=== PATIENT | female | born 1995 | race Caucasian/White ===

== ENCOUNTER 2019-03-04 20:31 | Emergency (ER) | payer MEDICAID, SELFPAY ==
[2019-03-04 20:35] VITALS: BP 128/73; PULSE 95; RESP 16; TEMP 36.4; O2SAT 95; BMI 23.3
== END 2019-03-04 22:04 | disposition home or self-care (01) ==
PROVIDERS: Emergency Provider Family Medicine; Family Provider Nurse Practitioner; PCP Nurse Practitioner
DX: Z53.21 Procedure and treatment not carried out due to patient leaving prior to being seen by health care provider (principal)
CPT/HCPCS: 99281

== ENCOUNTER 2020-03-02 18:05 | Outpatient (CLI) | payer MEDICAID, SELFPAY ==
[2020-03-02 18:13] VITALS: BP 134/71; PULSE 89; RESP 18
[2020-03-02] MEDS: sodium chloride 0.9% 1,000 ML 999 ML IV ×2 (18:39→19:55)
[2020-03-02 18:56] LABS: Urine Appearance Hazy (CLEAR); Urine Color Yellow (Yellow)
[2020-03-02 18:57] LABS: Bilirubin Urine Neg (Negative); Blood Urine 2+ (Negative); Glucose Urine UA Norm (Normal); Ketones Urine 1+ (Negative); Leukocyte Esterase Urine Trace (Negative); Nitrate Urine Negative (Negative); Protein Urine Neg (Negative); Specific Gravity, Urine 1.025 (1.005-1.030); Urobilinogen Urine Norm (Negative); pH Urine 5 (5-7)
[2020-03-02 19:01] VITALS: BMI 31.6
[2020-03-02 19:03] LABS: Amphetamines Screen Urine Negative (Negative); Barbiturates Screen Urine Negative (Negative); Benzodiazepines Screen Urine Negative (Negative); Cocaine Screen Urine Negative (Negative); Opiate Screen Urine Negative (Negative); PCP Screen Urine Negative (Negative); THC Screen Urine Negative (Negative)
[2020-03-02 19:06] LABS: RBC Urine 15-25 /hpf (0-2); Squamous Epithelial Cell Urine 25-40 /hpf (0-5)
[2020-03-02 19:07] LABS: Add Urine Culture? No; Bacteria Urine 2+ /hpf; Mucus Urine 2+ /hpf
[2020-03-02] MEDS: cephALEXin 500 mg Capsule PO (20:19)
[2020-03-02 20:53] VITALS: TEMP 36.3
[2020-03-02 20:54] VITALS: BP 107/59; PULSE 80
== END 2020-03-02 21:20 | disposition home or self-care (01) ==
LOC: OPOB 18:17 → OBGYN 19:59
PROVIDERS: Visit Provider Family Medicine
DX: O26.899 Other specified pregnancy related conditions, unspecified trimester (principal); Z3A.00 Weeks of gestation of pregnancy not specified; R10.9 Unspecified abdominal pain
CPT/HCPCS: 80306; 81001; 96360; 99211; J7030

== ENCOUNTER 2020-03-17 20:14 | Outpatient (CLI) | payer MEDICAID, SELFPAY ==
[2020-03-17] VITALS (16 sets, daily range): BP systolic 114–147; BP diastolic 65–75; PULSE 75–95; TEMP 36.4; O2SAT 96–100; BMI 31.4
[2020-03-17] MEDS: terbutaline 1 mg/mL INJ 0.25 MG SUBCUT (21:08)
[2020-03-17] MEDS: lactated ringers 1,000 ML 999 ML IV (21:08)
[2020-03-17 21:34] LABS: Bilirubin Urine Neg (Negative); Blood Urine Trace (Negative); Glucose Urine UA 2+ (Normal); Ketones Urine 1+ (Negative); Leukocyte Esterase Urine Negative (Negative); Nitrate Urine Negative (Negative); Protein Urine Neg (Negative); Specific Gravity, Urine 1.025 (1.005-1.030); Urine Appearance Clear (CLEAR); Urine Color Yellow (Yellow); Urobilinogen Urine Norm (Negative)
[2020-03-17 21:35] LABS: Add Urine Culture? No; Add Urine Microscopic? YES; Bacteria Urine 1+ /hpf; Mucus Urine 1+ /hpf; RBC Urine 0-4 /hpf (0-2); WBC Urine 0-4 /hpf (0-5)
== END 2020-03-17 22:23 | disposition home or self-care (01) ==
LOC: OPOB 20:20 → OBGYN 20:23
PROVIDERS: Visit Provider Family Medicine
DX: O26.899 Other specified pregnancy related conditions, unspecified trimester (principal); Z3A.00 Weeks of gestation of pregnancy not specified; R10.9 Unspecified abdominal pain
CPT/HCPCS: 81001; 96365; 96372; 99211; J3105

== ENCOUNTER 2020-03-20 20:33 | Outpatient (CLI) | payer MEDICAID, SELFPAY ==
[2020-03-20] VITALS (9 sets, daily range): BP systolic 119–131; BP diastolic 66–72; PULSE 87–104; RESP 17; TEMP 36.8–37; O2SAT 96–97; BMI 32.1
[2020-03-20] MEDS: sodium chloride 0.9% 1,000 ML 999 ML IV (21:30)
[2020-03-20] MEDS: ondansetron 2 mg/ML SDV 2 mL 4 MG IVP (21:56)
[2020-03-20 22:13] LABS: Add Urine Microscopic? NO
[2020-03-20 22:20] LABS: Bilirubin Urine Neg (Negative); Blood Urine Neg (Negative); Glucose Urine UA Norm (Normal); Ketones Urine Negative (Negative); Leukocyte Esterase Urine Negative (Negative); Nitrate Urine Negative (Negative); Protein Urine Neg (Negative); Specific Gravity, Urine 1.025 (1.005-1.030); Urine Appearance Clear (CLEAR); Urine Color Yellow (Yellow); Urobilinogen Urine Norm (Negative)
== END 2020-03-20 22:57 | disposition home or self-care (01) ==
LOC: OPOB 20:34 → OBGYN 20:38
PROVIDERS: Visit Provider Family Medicine
DX: O36.8190 Decreased fetal movements, unspecified trimester, not applicable or unspecified (principal); Z3A.00 Weeks of gestation of pregnancy not specified
CPT/HCPCS: 59025; 81003; 99211; J2405; J7030

== ENCOUNTER 2020-03-21 17:16 | Outpatient (CLI) | payer MEDICAID, SELFPAY ==
[2020-03-21] VITALS (36 sets, daily range): BP systolic 102–139; BP diastolic 52–85; PULSE 81–117; RESP 18; TEMP 37.2; O2SAT 92–100; BMI 31.6
[2020-03-21] MEDS: terbutaline 1 mg/mL INJ 0.25 MG SUBCUT (18:11)
[2020-03-21 18:13] LABS: Bilirubin Urine Neg (Negative); Blood Urine Neg (Negative); Glucose Urine UA Norm (Normal); Ketones Urine Negative (Negative); Leukocyte Esterase Urine Trace (Negative); Nitrate Urine Negative (Negative); Protein Urine Neg (Negative); Urine Appearance Hazy (CLEAR); Urine Color Yellow (Yellow); Urobilinogen Urine Norm (Negative); pH Urine 6.5 (5-7)
[2020-03-21] MEDS: lactated ringers 1,000 ML 999 ML IV (18:14)
[2020-03-21 18:24] LABS: Add Urine Culture? No; Bacteria Urine 2+ /hpf; RBC Urine 0-4 /hpf (0-2)
[2020-03-21] MEDS: oxyCODONE-APAP 5-325 mg Tablet 2 TAB PO (19:20)
[2020-03-21] MEDS: NIFEdipine ER (24 hr) 30 mg Tablet PO (21:26)
[2020-03-21] MEDS: betamethasone susp 6 mg/mL 5 mL 12 MG IM (21:26)
== END 2020-03-21 21:57 | disposition home or self-care (01) ==
LOC: OPOB 17:20 → OBGYN 17:20
PROVIDERS: Visit Provider Family Medicine
DX: O26.899 Other specified pregnancy related conditions, unspecified trimester (principal); Z3A.00 Weeks of gestation of pregnancy not specified; R10.9 Unspecified abdominal pain
CPT/HCPCS: 81001; 83986; 96361; 96372; J0702; J3105

== ENCOUNTER 2020-03-22 04:38 | Outpatient (CLI) | payer MEDICAID, SELFPAY ==
[2020-03-22 04:38] VITALS: BMI 31.6
[2020-03-22 04:49] VITALS: TEMP 37.2
[2020-03-22 04:59] VITALS: BP 119/90; PULSE 90
[2020-03-22 06:04] LABS: Basophils # 0.1 10^3/uL (0.0-0.1); Basophils % 0.3 %; Hematocrit 34.4 % (37.0-47.0); Hemoglobin 10.8 g/dL (11.5-15.3); Lymphocytes # 1.1 10^3/uL (0.8-4.8); Lymphocytes % 7.3 %; Mean Corpuscular HGB Conc 31.4 g/dL (30.0-36.0); Mean Corpuscular Hemoglobin 29.3 pg (28.0-34.0); Mean Corpuscular Volume 93.2 fL (81-99); Mean Platelet Volume 10.4 fL (7.4-10.4); Monocytes # 0.2 10^3/uL (0.2-0.9); Monocytes % 1.3 %; Neutrophils # 13.98 10^3/uL (1.8-7.7); Neutrophils % 89.6 %; Nucleated Red Blood Cells % 0 %; Platelet Count 332 10^3/cmm (130-400); Red Blood Count 3.69 10^6/uL (4.1-5.3); Red Cell Distribution Width 13.2 % (12.1-15.1); White Blood Count 15.6 10^3/uL (4.0-10.0)
[2020-03-22] MEDS: acetaminophen 325 mg Tablet 650 MG PO (06:20)
[2020-03-22] MEDS: NIFEdipine 10 mg Capsule 20 MG PO (06:20)
[2020-03-22] MEDS: hyDROXYzine 25 mg Capsule PO (06:20)
[2020-03-22] MEDS: lactated ringers 1,000 ML 125 ML IV (06:22)
[2020-03-22 06:30] LABS: Albumin Level 3.2 g/dL (3.5-5.2); Alkaline Phosphatase 196 IU/L (35-105); Chloride 105 mmol/L (98-107); Potassium 4.4 mmol/L (3.5-5.1); Sodium 137 mmol/L (136-145)
[2020-03-22 06:44] LABS: Alanine Aminotransferase 8 U/L (0-33); Anion Gap 17.4 (5-19); Aspartate Amino Transferase 10 U/L (0-32); Blood Urea Nitrogen 5 mg/dL (6-20); Calcium 9.2 mg/dL (8.5-10.5); Carbon Dioxide 19 mmol/L (22-29); Glomerular Filtration Rate 278.2 mL/min (90-130); Glucose 162 mg/dL (65-115); Osmolality Calculated 285 mOsm/kg (285-295); Total Bilirubin 0.2 mg/dL (0.15-1.2); Total Protein 6.2 g/dL (6.6-8.7)
[2020-03-22 07:47] VITALS: RESP 16; TEMP 36.7
--- NOTE | 2020-03-22 10:21 | P.PN_ITS ---
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 She once again is complaining of abdominal pain and pain with contractions. Once again, her pain seems to be very dependent on how much she is focused on her contractions. When given Vistaril, she calmed down and her pain was markedly improved. She was out of control with her pain prior to the Vistaril, but is now is laying in her bed comfortably. She says that her pain has not changed at all, but her response to her pain has changed dramatically. Labor: Amniotic Membrane Status: Intact Monitor Mode: External Contraction Pattern: Irregular Vitals/I&O/Wt Last Vital Signs Temp 98.0 F 03/22/20 07:47 Pulse 90 03/22/20 04:59 Resp 16 03/22/20 07:47 BP 119/90 03/22/20 04:59 Weight last 48 hrs Weight 202 lb Physical Exam Const: COMMON NORMALS: patient oriented x3 and alert HENMT: COMMON NORMALS: moist oral mucous membranes HEAD & SCALP: normal to inspection Chest: COMMONS NORMALS: normal inspection of the chest Resp: COMMON NORMALS: clear to auscultation bilaterally AUSCULTATION: clear to auscultation bilaterally Cardio: COMMON NORMALS: regular rate and regular rhythm RATE: regular rate RHYTHM: regular rhythm GI: INSPECTION: Yes normal to inspection and Yes other (Gravid) PALPATION: Yes Tenderness to palpation present (GI) (The patient is tender even to the gentlest touch anywhere across her abdome) : MANUAL OB EXAM: Not dilated nor effaced (The patient is a tight 1 cm dilated, and is thick and high according to the) Extremity: COMMON NORMALS: normal to inspection GENERAL: Yes edema (Trace) Neuro: COMMON NORMALS: patient oriented x3, moves all extremities and no sensory deficits noted SENSORIUM/ORIENTATION: Yes alert Psych: COMMON NORMALS: mental status grossly normal MOOD & AFFECT: Yes anxious and Yes irritable Skin: COMMON NORMALS: no rashes or lesions noted GENERAL SKIN EXAM: no rashes or lesions noted Data : 03/22/20 05:51 03/22/20 05:51 A&P Assessment and plan (1) Abdominal pain complicating : The patient will receive a second dose of her betamethasone tonight. She will follow-up with me in my office next week. I have talked for about how she can manage her pain better. Status: Acute (2) contractions: Status: Acute Attestations Medical Necessity Statement*: Going home now. Coding Level of Care Code Acute Train Control Electronic Technician for g Fwd Diagnoses Abdominal pain complicating O26.899; R10.9 contractions O47.9
[2020-03-22 10:45] VITALS: BP 103/67; PULSE 99
== END 2020-03-22 11:00 | disposition home or self-care (01) ==
LOC: OPOB 04:39 → OBGYN 10:20
PROVIDERS: Visit Provider Family Medicine
DX: O26.899 Other specified pregnancy related conditions, unspecified trimester (principal); O47.9 False labor, unspecified; R10.9 Unspecified abdominal pain; Z3A.00 Weeks of gestation of pregnancy not specified
CPT/HCPCS: 36415; 80053; 85025; 96361; 99211

== ENCOUNTER 2020-03-22 20:09 | Outpatient (CLI) | payer MEDICAID, SELFPAY ==
[2020-03-22 20:13] VITALS: RESP 17
[2020-03-22 20:21] VITALS: BP 117/60; PULSE 86
[2020-03-22 20:22] VITALS: TEMP 37.1
[2020-03-22 20:34] VITALS: BMI 34.7
[2020-03-22] MEDS: betamethasone susp 6 mg/mL 5 mL 12 MG IM (20:41)
[2020-03-22 20:45] VITALS: BP 117/60; PULSE 86; RESP 16; TEMP 37.1
== END 2020-03-22 20:58 | disposition home or self-care (01) ==
LOC: OPOB 20:12 → OBGYN 20:16
PROVIDERS: Visit Provider Family Medicine
DX: O26.899 Other specified pregnancy related conditions, unspecified trimester (principal); R10.9 Unspecified abdominal pain; O47.9 False labor, unspecified; Z3A.00 Weeks of gestation of pregnancy not specified
CPT/HCPCS: 59025; 96372; 99211; J0702

== ENCOUNTER 2020-03-28 07:05 | Outpatient (CLI) | payer MEDICAID, SELFPAY ==
[2020-03-28 07:25] VITALS: BP 126/73; PULSE 100; TEMP 36.7
[2020-03-28] MEDS: lactated ringers 1,000 ML 999 ML IV (08:02)
[2020-03-28] MEDS: promethazine 25 mg/mL SDV 1 mL IM (08:02)
[2020-03-28 08:43] VITALS: BP 119/63; PULSE 84
[2020-03-28 09:17] LABS: Bilirubin Urine Neg (Negative); Blood Urine Neg (Negative); Glucose Urine UA Norm (Normal); Ketones Urine Negative (Negative); Leukocyte Esterase Urine 2+ (Negative); Nitrate Urine Negative (Negative); Protein Urine Neg (Negative); Urine Appearance Cloudy (CLEAR); Urine Color Yellow (Yellow); Urobilinogen Urine Norm (Negative); pH Urine 6 (5-7)
[2020-03-28 09:22] VITALS: BP 126/73; PULSE 83
[2020-03-28 09:26] VITALS: BP 126/73; PULSE 83; RESP 15; TEMP 37
[2020-03-28 09:47] LABS: Add Urine Culture? No; Bacteria Urine 2+ /hpf; Squamous Epithelial Cell Urine 80-100 /hpf (0-5); WBC Urine 55-80 /hpf (0-5)
== END 2020-03-28 09:25 | disposition home or self-care (01) ==
LOC: OPOB 07:10 → OBGYN 07:10
PROVIDERS: Visit Provider Family Medicine
DX: O26.899 Other specified pregnancy related conditions, unspecified trimester (principal); Z3A.00 Weeks of gestation of pregnancy not specified; R10.9 Unspecified abdominal pain
CPT/HCPCS: 59025; 81001; 83986; 96372; 99211; J2550

== ENCOUNTER 2020-04-04 21:26 | Outpatient (CLI) | payer MEDICAID, SELFPAY ==
[2020-04-04 21:40] VITALS: TEMP 36.9
[2020-04-04 21:41] VITALS: BP 117/62; PULSE 94
[2020-04-04 22:13] VITALS: RESP 16
[2020-04-04 22:14] VITALS: BMI 32.5
[2020-04-04 22:23] VITALS: BP 117/62; PULSE 94; RESP 16; TEMP 36.9
[2020-04-04 22:28] LABS: Nitrazine Paper, PH Negative
== END 2020-04-04 22:36 | disposition home or self-care (01) ==
LOC: OPOB 21:32 → OBGYN 21:37
PROVIDERS: Visit Provider Family Medicine
DX: O26.899 Other specified pregnancy related conditions, unspecified trimester (principal); Z3A.00 Weeks of gestation of pregnancy not specified; R10.9 Unspecified abdominal pain
CPT/HCPCS: 59025; 83986; 99211

== ENCOUNTER 2020-04-09 18:40 | Outpatient (CLI) | payer MEDICAID, SELFPAY ==
[2020-04-09 19:03] VITALS: BP 129/67; PULSE 93
[2020-04-09 19:04] VITALS: TEMP 36.8
[2020-04-09 19:18] VITALS: BP 112/58; PULSE 93
[2020-04-09 19:45] VITALS: BMI 33.2
== END 2020-04-09 19:34 | disposition home or self-care (01) ==
LOC: OPOB 18:45 → OBGYN 19:25
PROVIDERS: Visit Provider Family Medicine
DX: O26.899 Other specified pregnancy related conditions, unspecified trimester (principal); Z3A.00 Weeks of gestation of pregnancy not specified; R10.9 Unspecified abdominal pain
CPT/HCPCS: 59025; 83986; 99211

== ENCOUNTER 2020-04-13 19:40 | Outpatient (CLI) | payer MEDICAID, SELFPAY ==
[2020-04-13] VITALS (7 sets, daily range): BP systolic 107–124; BP diastolic 68–86; PULSE 76–85; RESP 16; TEMP 36.9; BMI 32.8
[2020-04-13 21:34] LABS: Bilirubin Urine Neg (Negative); Blood Urine Neg (Negative); Glucose Urine UA Norm (Normal); Ketones Urine Negative (Negative); Leukocyte Esterase Urine 2+ (Negative); Nitrate Urine Negative (Negative); Protein Urine Neg (Negative); Urine Color Yellow (Yellow); Urobilinogen Urine Norm (Negative); pH Urine 6 (5-7)
[2020-04-13 21:35] LABS: Add Urine Culture? No; Bacteria Urine 4+ /hpf; RBC Urine 0-4 /hpf (0-2); Squamous Epithelial Cell Urine 40-55 /hpf (0-5); WBC Urine 15-25 /hpf (0-5)
== END 2020-04-13 22:05 | disposition home or self-care (01) ==
LOC: OPOB 20:01 → OBGYN 20:02
PROVIDERS: Visit Provider Family Medicine
DX: O26.899 Other specified pregnancy related conditions, unspecified trimester (principal); Z3A.00 Weeks of gestation of pregnancy not specified; N89.8 Other specified noninflammatory disorders of vagina
CPT/HCPCS: 59025; 81001; 83986; 99211

== ENCOUNTER 2020-04-17 07:37 | Inpatient (IN) | payer MEDICAID, SELFPAY ==
[2020-04-17] VITALS (95 sets, daily range): BP systolic 107–145; BP diastolic 54–73; PULSE 65–181; RESP 18; TEMP 36.3–37.6; O2SAT 97–99; BMI 32.8
[2020-04-17 05:09] LABS: Basophils # 0.1 10^3/uL (0.0-0.1); Basophils % 0.4 %; Eosinophils # 0.2 10^3/uL (0.0-0.8); Eosinophils % 1.4 %; Hematocrit 35.5 % (37.0-47.0); Hemoglobin 11.2 g/dL (11.5-15.3); Lymphocytes % 13.5 %; Mean Corpuscular HGB Conc 31.5 g/dL (30.0-36.0); Mean Corpuscular Hemoglobin 28.6 pg (28.0-34.0); Mean Corpuscular Volume 90.6 fL (81-99); Mean Platelet Volume 10.5 fL (7.4-10.4); Monocytes # 0.8 10^3/uL (0.2-0.9); Monocytes % 5.6 %; Neutrophils # 11.51 10^3/uL (1.8-7.7); Neutrophils % 77.2 %; Nucleated Red Blood Cells % 0 %; Platelet Count 335 10^3/cmm (130-400); Red Blood Count 3.92 10^6/uL (4.1-5.3); Red Cell Distribution Width 14.6 % (12.1-15.1); White Blood Count 14.9 10^3/uL (4.0-10.0)
[2020-04-17] MEDS: dextrose 5%-lactated ringers 1,000 ML 125 ML IV (07:32)
[2020-04-17] MEDS: ampicillin 2,000 MG in sodium chloride 0.9% (plus) 50 ML 100 MG IV (07:32)
[2020-04-17] MEDS: fentaNYL 50 mcg/mL INJ 2mL IV (08:16)
[2020-04-17] MEDS: lactated ringers 1,000 ML 999 ML IV ×2 (08:16→09:21)
--- NOTE | 2020-04-17 09:32 | ANES.PREANE2 ---
Pre-Anesthetic Assessment Pre-Anesthetic Assessment: Height/Weight: Height 1.68 m Weight 92.079 kg Temp Pulse Resp BP Pulse Ox 99.1 F 80 18 131/58 98 04/17/20 08:18 04/17/20 09:29 04/17/20 08:24 04/17/20 09:29 04/17/20 09:29 Preop Diagnosis: IUP Proposed Procedure: Epidural Familial anesthetic complications: None Was Beta Daniela taken within 24 hours: N/A Last intake: NPO > 8 hrs Social: Social History: No alcohol and No tobacco Exam: Pre-Anes Outpt Exam: alert, oriented x 3, clear to auscultation bilaterally and regular rate & rhythm Airway: Cervical ROM: WNL MP: 3 Dentition: Other (cavities (front tooth)) Anesthetic Plan: ASA status: 2 Anesthesia: Regional (specify below) Risk of > 500 ml blood loss (7ml/kg in children): Yes, adequate IV access and fluids planned Meds/Allergies Current Medications: Current Medications Generic Name Dose Route Start Last Admin Trade Name Yonnyq PRN Reason Stop Dose Admin Fentanyl 25 - 100 mcg 04/17/20 08:01 04/17/20 08:16 Fentanyl 50 Mcg/ Ml Inj 2ml IV 25 mcg Q1H PRN Administration SEVERE PAIN Dextrose/Lactated Ringer's 1,000 mls @ 125 m ls/hr 04/17/20 05:00 04/17/20 08:27 Dextrose 5%-Lact ated Ringers IV 0 mls/hr .Q8H PAYTON Infusion Ropivacaine 200 mg in 100 mls @ 13 mls/hr 04/17/20 08:15 04/17/20 09:21 Naropin Premix EPIDURAL 13 mls/hr .Q7H42M PAYTON Administration Lactated Ringer's 1,000 mls @ 999 m ls/hr 04/17/20 08:03 04/17/20 09:21 Lactated Ringers IV 999 mls/hr .Q1H1M PRN Administration See label comment s PFSH Anesthesia PFSH: Social History Smoking and tobacco status: current every day smoker Female Reproductive History: : 2 Data Anesthesia CBC & Chem 7: 04/17/20 04:50 Other Labs: Laboratory Results - last 48 hr 04/17/20 04:50 WBC 14.9 H RBC 3.92 L Hgb 11.2 L Hct 35.5 L MCV 90.6 MCH 28.6 MCHC 31.5 RDW 14.6 Plt Count 335 MPV 10.5 H Neut % (Auto) 77.2 Lymph % (Auto) 13.5 [facility] % (Auto) 5.6 Eos % (Auto) 1.4 Baso % (Auto) 0.4 Neut # (Auto) 11.51 H Lymph # (Auto) 2.0 [facility] # (Auto) 0.8 Eos # (Auto) 0.2 Baso # (Auto) 0.1 Nucleated RBC % (auto) 0 Nucleated RBCs # 0.0 Cardiac Studies: No Data to Display
--- NOTE | 2020-04-17 09:33 | ANES.PROC ---
Anesthesia Procedures Procedure/Date: 04/17/20 Epidural: Time Out Performed: Yes Consents Signed: Procedure Consent, NPO Consent and No Consent Needed Consent: requested by attending/covering physician, from patient, risks and benefits reviewed and patient agrees to proceed Lumbar Level: L2-L3 Epidural position: sitting Epidural procedure: sterile prep of area, 1% lidocaine to numb the area, 18 g needle, negative for paresthesia passed, neg for paresthesia, test dose given, 1.5% xylocaine 1:200k epi (5 cc (divided dose)), 0.2% Ropivacaine bolus ml (5 cc), placed PCEA, no systemic response, sterile dressing applied, L.U.D. no apparent complications and 0.2% Ropiavacaine @ mls/hr (13) Additional Comments: ALVERTO at 4.5 cm, threaded to 10 cm. Patient reported significant decrease in pain of subsequent two contractions.
[2020-04-17] MEDS: oxytocin 30 UNIT/500 ML BAG IV (10:02)
[2020-04-17] MEDS: ampicillin 1,000 MG in sodium chloride 0.9% (plus) 50 ML 100 MG IV ×2 (11:23→14:32)
[2020-04-17] MEDS: ondansetron 2 mg/ML SDV 2 mL 4 MG IVP (14:32)
--- NOTE | 2020-04-17 17:33 | P.PCNOB_ITS ---
Delivery Note: Date of delivery: April 17, 2020 Pre-Delivery Course: The patient is a 24-year-old 2 para 0-0-1-0 at 37 weeks and 1 day who presented to the hospital with spontaneous rupture of membranes. She was having some contractions but no cervical change. As result she was placed on Pitocin. An epidural was placed. Her GBS status was unknown so she was also placed on ampicillin. She received multiple doses. She progressed to complete without difficulty. Delivery: DELIVERY: The patient progressed to complete without difficulty. She then pushed for 1-1/2 hours with no change in station. She was about a 0 station when I placed a soft cup Kiwi vacuum on the baby's head in the usual fashion. I then applied steady pressure with the patient's next contraction while the mom pushed 3 times. The baby progressed to the point where he was then . The vacuum popped off at that point. With the next contraction, the patient was able to deliver the baby without difficulty. She delivered a male with a weight of 8 pounds 1 ounce with Apgars of 8, 9. The baby was delivered from the DHIRAJ position and placed on the mother's abdomen. His mouth and nose were then suctioned. A tear was noted in the cord and so the cord was then clamped and cut about 15 to 30 seconds after delivery. There was a nuchal cord x1 which was reduced at the time of delivery. Meconium was noted.. The pl acenta and 3 vessel cord were delivered intact shortly thereafter. The perineum and vaginal vault were carefully examined. A second-degree posterior midline tear was noted. It was repaired with 3-0 Vicryl in usual fashion. Both the mother and the baby were in stable condition. A&P Assessment and plan (1) 37 weeks gestation of : I anticipate routine care. If all goes well, she will be able to be discharged home tomorrow evening. Status: Acute (2) Vacuum-assisted vaginal delivery: Status: Acute Coding Level of Care Code Acute Estate And Trust Tax Principal for Naomi Munoz Diagnoses 37 weeks gestation of Z3A.37 Vacuum-assisted vaginal delivery Z37.9
[2020-04-17] MEDS: docusate sodium 100 mg Capsule PO (18:22)
[2020-04-17] MEDS: HYDROcodone-acetaminophen 5-325 mg Tablet PO (18:24)
[2020-04-17] MEDS: lanolin oint 7 gm 1 APPLIC TOPICAL (19:06)
[2020-04-17] MEDS: benzocaine-menthol 78 gm Canister 1 SPRAY TOPICAL (19:06)
[2020-04-17] MEDS: ibuprofen 800 mg tablet PO (21:01)
[2020-04-18] VITALS (12 sets, daily range): BP systolic 95–127; BP diastolic 47–61; PULSE 68–86; RESP 16; TEMP 36.8
[2020-04-18 05:02] LABS: Hematocrit 30.2 % (37.0-47.0); Hemoglobin 9.6 g/dL (11.5-15.3); Mean Corpuscular HGB Conc 31.8 g/dL (30.0-36.0); Mean Corpuscular Hemoglobin 28.7 pg (28.0-34.0); Mean Corpuscular Volume 90.1 fL (81-99); Mean Platelet Volume 10.6 fL (7.4-10.4); Platelet Count 278 10^3/cmm (130-400); Red Blood Count 3.35 10^6/uL (4.1-5.3); Red Cell Distribution Width 14.6 % (12.1-15.1); White Blood Count 16.3 10^3/uL (4.0-10.0)
--- NOTE | 2020-04-18 07:40 | P.DS_ITS ---
Discharge Providers PATIENT SAFETY TECH Date of Admission: 04/17/20 07:37 Date of Discharge: 04/18/20 Attending Provider at Admission: Zhang Snell MD Attending Provider at Discharge: Zhang Snell MD Diagnoses at Discharge Discharge Diagnosis (1) 37 weeks gestation of : Status: Acute (2) Vacuum-assisted vaginal delivery: Status: Acute Reason for Visit Reason for Visit: Possible ROM Hospital Course Hospital Course The patient presented to the hospital with spontaneous rupture membranes and active labor. She received an epidural. Her labor was augmented with Pitocin. She progressed to complete and had an unremarkable delivery of a healthy appearing 37-week male infant. Her course is also been unremarkable. Her bleeding has been within normal limits. Her pain is been well controlled. She has been breast-feeding with the assistance of the nurses. Information Peripartum Data: Delivery Method: Vaginal Physical Exam Narrative: EXAM NARRATIVE: The patient is alert. She appears comfortable. Her heart has a regular rate and rhythm with no murmurs appreciated. Lungs are clear to auscultation bilaterally. Her fundus is firm and below the umbilicus. Urinary Catheter Management^: Vance: Cath Placed During This Visit: yes, but has since been removed by the nurse Reason for Continuing Indwelling Catheter: Decision to DC Catheter Urinary Catheter Date of Insertion: 04/17/20 Urinary Catheter Time of Insertion: 09:52 Date Urinary Catheter Removed: 04/17/20 Time Urinary Catheter Discontinued: 15:00 Discharge Data Data Completed and Pending: Pending at discharge Category Date Time Status COVID [Coronaviru s Test Green Count y] Routine Lab 04/17/20 06:40 Received Labs from last 24 hours 04/18/20 04:50 WBC 16.3 H RBC 3.35 L Hgb 9.6 L Hct 30.2 L MCV 90.1 MCH 28.7 MCHC 31.8 RDW 14.6 Plt Count 278 MPV 10.6 H Vitals: Last Vital Signs Temp 99.7 F H 04/17/20 18:49 Pulse 76 04/18/20 01:51 Resp 18 04/17/20 17:49 BP 123/57 04/18/20 01:51 Pulse Ox 97 04/17/20 10:14 Discharge Plan Discharge Patient Disposition: Home Condition: Stable Prescriptions: New ibuprofen 800 mg Tablet 800 mg PO TID Qty: 45 RF: 0 Continued kscxmzzw-akm-Lb-FA 1 mg Tablet 1 tab PO DAILY RF: 0 acetaminophen [Tylenol Extra Strength] 500 mg Tablet 500 mg PO Q6H PRN (Reason: Pain) RF: 0 sertraline 50 mg Tablet 50 mg PO DAILY RF: 0 Discontinued nifedipine 30 mg Tablet Extended Release 24hr 30 mg PO DAILY RF: 0 famotidine 10 mg Tablet 10 mg PO DAILY RF: 0 promethazine 25 mg Tablet 25 mg PO Q6H PRN (Reason: Nausea And Vomiting) RF: 0 Discharge Orders: Discharge Order (Routine); Ordered 04/18/20 Ordered By: Zhang Snell Referrals: Zhang Snell MD [Physician] - 6 Weeks Discharge Diet: Usual diet Discharge Activity: Limit activity as instructed Discharge Attestations PATIENT SAFETY TECH Time Spent in Discharge Care*: less than 30 min Specific Discharge Activities: Specific discharge activities: educating patient and educating and/or supporting family/caregiver Coding Level of Care Code Acute Molecular Biology Director for Chg Fwd Diagnoses 37 weeks gestation of Z3A.37 Vacuum-assisted vaginal delivery Z37.9
[2020-04-18] MEDS: prenatal vitamin Capsule 1 CAP PO (09:24)
[2020-04-18] MEDS: docusate sodium 100 mg Capsule PO ×2 (09:24→19:03)
[2020-04-18] MEDS: ibuprofen 800 mg tablet PO ×2 (09:24→19:03)
--- NOTE | 2020-04-18 12:38 | ANE.PACU2 ---
Inpatient post-anesthesia follow up: Airway intact: Yes Vital signs: Temperature 99.7 F Pulse Rate 76 Respiratory Rate 18 Blood Pressure 123/57 Pulse Oximetry 97 Oxygen Delivery Me thod Room Air Oxygen Flow Rate Fraction of Inspir ed Oxygen Hydration adequate: Yes Nausea and vomiting: No Pain level: 2 Mental status: Baseline
[2020-04-20 14:45] LABS: Coronavirus Test Green County Not Detected
== END 2020-04-18 20:39 | disposition home or self-care (01) | DRG 806 ==
LOC: OPOB 07:37 → OBGYN 07:37
PROVIDERS: Admitting Provider Family Medicine; Visit Provider Family Medicine
DX: O77.0 Labor and delivery complicated by meconium in amniotic fluid (principal); O99.354 Diseases of the nervous system complicating childbirth; Z37.0 Single live birth; O99.344 Other mental disorders complicating childbirth; F32.9 Major depressive disorder, single episode, unspecified; G40.909 Epilepsy, unspecified, not intractable, without status epilepticus; O69.2XX0 Labor and delivery complicated by other cord entanglement, with compression, not applicable or unspecified; O70.1 Second degree perineal laceration during delivery; Z3A.37 37 weeks gestation of pregnancy; O75.89 Other specified complications of labor and delivery; J45.909 Unspecified asthma, uncomplicated
CPT/HCPCS: 12345; 36415; 51702; 59025; 59409; 83986; 85025; 85027; 87635; 98960; 99211; J0290; J2405; J2795; J3010

== ENCOUNTER 2020-07-09 23:19 | Emergency (ER) | payer MEDICAID, SELFPAY ==
[2020-07-09 23:49] VITALS: BP 118/79; PULSE 80; RESP 16; TEMP 36.6; O2SAT 97; BMI 28.2
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
== END 2020-07-10 03:00 | disposition home or self-care (01) ==
PROVIDERS: Emergency Provider Emergency Medicine
DX: T76.21XA Adult sexual abuse, suspected, initial encounter (principal); F17.210 Nicotine dependence, cigarettes, uncomplicated
CPT/HCPCS: 99281

== ENCOUNTER 2021-02-19 17:07 | Emergency (ER) | payer MEDICAID, SELFPAY ==
[2021-02-19 17:33] VITALS: BP 123/76; PULSE 94; RESP 16; TEMP 36.7; O2SAT 98
--- NOTE | 2021-02-19 17:53 | W.ED.EXTPRO ---
HPI - Extremity Problem General: Chief complaint: Extremity Injury, Lower Stated complaint: [facility] Time Seen by Provider: 02/19/21 17:39 History of Present Illness: HPI Narrative: Patient is a 25-year-old female comes to the ED with right ankle injury. Yesterday patient says she was walking down some stairs and when she went to step down with right foot she twisted/rolled her right ankle. Since injury she says her right ankle was locked in the inward facing position. Says she can bear weight on it but it causes some pain and she has to limp. Her current pain level is a 6 out of 10 but if she has to move to put weight on it she says it 8 or 9 out of 10. Patient also states she is out of her albuterol inhaler. Associated symptoms: Deny chest pain, fever(s) or rash Review of Systems Const: Denies: fever(s), chills or fatigue Eyes: Denies: change in vision or eye discomfort ENMT: Denies: throat pain, odynophagia, nasal discharge or nasal congestion Card: Denies: chest pain, palpitations, edema, swelling of feet/ankles, dyspnea on exertion or orthopnea Resp: Denies: dyspnea, productive cough or non-productive cough GI: Denies: abdominal pain, nausea, vomiting, diarrhea, constipation or hematochezia : Denies: flank pain, dysuria or hematuria Musc: Reports: extremity pain (right ankle) and limited range of motion (right ankle); Denies: neck pain, back pain or extremity swelling Skin/Breast: Denies: rash or new lesions Neuro: Denies: headache(s), numbness in extremities or weakness in extremities PFS ED PFSH: Social History Smoking and tobacco status: current every day smoker Physical Exam Const: COMMON NORMALS: no acute distress, patient oriented x3, healthy appearing and alert GENERAL APPEARANCE: cooperative and comfortable HENMT: COMMON NORMALS: normocephalic HEAD & SCALP: normocephalic MOUTH: Normal oral and palatal mucosa present THROAT: posterior oropharynx normal and uvula midline Neck/C-Spine: COMMON NORMALS: supple GENERAL: Yes normal visual inspection Resp: COMMON NORMALS: normal respiratory effort, No retractions and No use of accessory muscles EFFORT & INSPECTION: Yes able to speak in complete sentences, No tachypneic, No respiratory distress and No labored AUSCULTATION: wheezes expiratory wheezes and throughout Cardio: COMMON NORMALS: regular rate, regular rhythm, S1 normal heart sound present, S2 normal heart sound present, No gallops present (Cardio), No clicks present (Cardio), No murmurs present (Cardio) and Peripheral pulses 2+ throughout RATE: regular rate RHYTHM: regular rhythm HEART SOUNDS: S1 normal heart sound present and S2 normal heart sound present PERIPHERAL PULSES: Peripheral pulses 2+ throughout GI: COMMON NORMALS: Normal to inspection, nondistended, normoactive bowel sounds present, Soft to palpation, non-tender and no masses PALPATION: Yes Soft to palpation : COMMON NORMALS: Yes no CVA tenderness BLADDER/KIDNEY EXAM: Yes no CVA tenderness Back/Pelvis: COMMON NORMALS: no CVA tenderness Extremity: GENERAL: Yes normal exam except as noted RIGHT LOWER EXTREMITY: Yes foot & digits (Foot held in inversion positioning at baseline) Right ankle: Yes inspection (No swelling or ecchymosis noted. ), Yes palpation (Tenderness over lateral and medial aspect of ankle.), Yes ROM (Limited due to pain) and Yes neurovascular exam (Intact) Neuro: COMMON NORMALS: patient oriented x3 and moves all extremities SENSORIUM/ORIENTATION: Yes alert Skin: GENERAL SKIN EXAM: dry skin Course ED course: Patient told me that she has been having multiple episodes of brief moments where her whole body goes numb and tingly feeling. She is aware of what is going on and can hear everybody during these episodes but she just cannot talk. She says they last for about maybe a minute. She has a history of seizures but says they are not like her past seizures and when she comes back to baseline she has no postictal state. Patient was on some antiseizure medications but stopped taking them as directed by her neurologist since she was . Now that she is delivered the baby she is scheduling appointment with her neuro specialist in [place] to meet with them to discuss getting back on seizure medications. I told patient to talk with neurologist about these brief episodes of full body numbness and tingling that she has been having recently. Vital Signs: Vital signs: Vital Signs Temperature 98.1 F 02/19/21 17:33 Pulse Rate 87 02/19/21 20:28 Respiratory Rate 20 H 02/19/21 20:28 Blood Pressure 134/87 02/19/21 20:28 Pulse Oximetry 96 02/19/21 20:28 MDM - Extremity (Nontraumatic) MDM Narrative: Medical decision making narrative: Patient is 25-year-old female comes to the ED with right ankle injury. Patient also was wanting to get her seizure medication refilled and her albuterol inhaler as well. Vitals stable. Patient appears in no acute distress or pain. She does have bilateral wheezing upon auscultation. Her right ankle has tenderness over the medial and lateral malleolus and she is holding the ankle and up inversion position. Neurovascular tact. X-ray of right ankle showed no acute fractures or findings. Due to the way patient's holding her foot position I am putting her in a posterior leg with stirrup splint to keep her foot and correct position while it heals and I am referring her to Ortho for follow-up. Patient was given DuoNeb breathing treatment while here in the ED and her symptoms improved. She was also given dose of Toradol for pain and Solu-Medrol. Patient is working on getting appointment set up with her neuro specialist in [place]. Patient was discharged home with a prescription for an albuterol inhaler, nifedipine and ibuprofen 800 mg for pain. Told her child welfare caseworker will contact her in the next several days to set up an appointment with Ortho for reevaluation of right ankle. Return to ED precautions given. Patient understood agree with plan. Imaging Data^: Xray Ortho: Attestation: I personally reviewed and interpreted this imaging study as follows: Radiologist's impression: [address] [address] XRay Report Signed Patient: Virgie Long Unit #: [id number] : 1995 Age/Sex: 25 / F ADM Date: 02/19/21 Loc: ER Room/Bed: Attending Dr: Ordering Provider/Ordering MD: Hai Richardson Date of Service: 02/19/21 Procedure(s): XR ankle RT min 3V* [id number] Accession Number(s): [id number] Report Number: [id number] PROCEDURE INFORMATION: Exam: XR Right Ankle Exam date and time: 02/19/2021 5:53 PM Age: 25 years old Clinical indication: Injury or trauma; Fall; Blunt trauma; Ankle; Right; Additional info: Injury with pain and limited rom TECHNIQUE: Imaging protocol: XR Right ankle. Views: 3 or more views. COMPARISON: No relevant prior studies available. FINDINGS: Bones/joints: No acute fracture. No dislocation. Normal bone mineralization. No joint effusion. Joint spaces are maintained. Soft tissues: No soft tissue swelling. No radiopaque foreign body. XR/XR ankle RT min 3V* [id number] IMPRESSION: No acute fracture. Followup imaging recommended in 7-14 days if clinical concern for fracture persists. Dictated By: Nelly Abreu MD Signed By: Nelly Abreu MD Signed Date/Time: 02/19/211836 DD/ 52 Discharge Plan Discharge Patient Disposition: Home Clinical Impression: Sprain and strain of ankle, Bilateral wheezing Condition: Stable Prescriptions: New nifedipine 30 mg tablet extended release 30 mg PO DAILY Qty: 30 RF: 0 ibuprofen 800 mg tablet 800 mg PO Q8H PRN (Reason: pain) Qty: 30 RF: 0 albuterol sulfate 90 mcg/actuation HFA aerosol inhaler 2 inh inhalation Q6H PRN (Reason: shortness of breath or wheezing) Qty: 8.5 RF: 0 No Action toupqzmf-lns-Ga-FA 1 mg Tablet 1 tab PO DAILY RF: 0 acetaminophen [Tylenol Extra Strength] 500 mg Tablet 500 mg PO Q6H PRN (Reason: Pain) RF: 0 sertraline 50 mg Tablet 50 mg PO DAILY RF: 0 ibuprofen 800 mg Tablet 800 mg PO TID Qty: 45 RF: 0 Discharge Orders: Discharge ED (Routine); Ordered 02/19/21 Ordered By: Hai Richardson Discharge Diet: Regular Discharge Activity: Limit activity as instructed and Use walker/crutches as instructed Patient Instructions: Ankle Sprain (DC) Activity Restrictions/Additional Instructions: Follow-up with medical provider as directed. Case management will contact you in the next several days to set up an appointment with Ortho for reevaluation of ankle injury. Contact your neuro specialist and get appointment set up with them to discuss seizure medication. Use crutches and minimal weightbearing until seen by Ortho. Take medications as prescribed. Return to the ER or your medical provider if condition worsens. Please read and understand discharge instructions. Thank you for choosing [facility] for your healthcare needs today. Please realize this is an emergency room and that we are providing you with a medical screening exam and this may not be complete and all inclusive of all the testing and or work up that you may need to determine your ailment or severity of your illness. It is very important that you follow up as instructed or that you return to the Emergency Department should you have concerns or if your condition changes or worsens in any way. Coding Level of Care Code ED Presser Machine for Naomi Fwjurgen Exam Comprehensive
[2021-02-19] MEDS: ipratropium-albuterol 3 mL Neb 6 ML INHALATION (20:16)
[2021-02-19] MEDS: ketorolac 60 mg/2 mL INJ IM (20:27)
[2021-02-19 20:28] VITALS: BP 134/87; PULSE 87; RESP 20; O2SAT 96
--- NOTE | 2021-02-23 12:48 | DCPLANNER ---
cadd manager had message to schedule a follow up appointment for patient with ortho. cadd manager called the ortho clinic, spoke with Alecia, gave clinic patients information. cadd manager was told that patients information would be printed and reviewed. Clinic will call patient with appointment information.
--- NOTE | 2021-02-24 07:12 | DCPLANNER ---
Patient has a follow up appointment scheduled for Tuesday, March 09, 2021 at 1:[address] Maguire. Clinic will call patient with appointment information.
--- NOTE | 2021-03-17 08:38 | DCPLANNER ---
Patient had a follow up appointment scheduled with ortho - patient did not attend appointment.
== END 2021-02-19 20:43 | disposition home or self-care (01) ==
PROVIDERS: Emergency Provider Physician Assistant
DX: F17.210 Nicotine dependence, cigarettes, uncomplicated (principal); S93.401A Sprain of unspecified ligament of right ankle, initial encounter; S96.911A Strain of unspecified muscle and tendon at ankle and foot level, right foot, initial encounter; W10.9XXA Fall (on) (from) unspecified stairs and steps, initial encounter; R06.2 Wheezing
CPT/HCPCS: 73610; 94640; 96372; 99283; J1885; J2930

== ENCOUNTER 2021-03-14 21:56 | Emergency (ER) | payer MEDICAID, SELFPAY ==
[2021-03-14] MEDS: LORazepam 2 mg/mL INJ 1 mL IVP (22:00)
--- NOTE | 2021-03-14 22:00 | CTR_ITS ---
PROCEDURE INFORMATION: Exam: CT Head Without Contrast Exam date and time: 03/14/2021 10:00 PM Age: 25 years old Clinical indication: Condition or disease; Convulsions or seizures; Unspecified; Patient HX: Recent restart on meds - HX of seizures w multiple witnessed seizures today; Additional info: Seizure TECHNIQUE: Imaging protocol: Computed tomography of the head without contrast. Radiation optimization: All CT scans at this facility use at least one of these dose optimization techniques: automated exposure control; mA and/or kV adjustment per patient size (includes targeted exams where dose is matched to clinical indication); or iterative reconstruction. COMPARISON: MRI Head w/wo* [id number] 02/11/2017 8:24 AM RADIATION DOSE METRICS: Total DLP (mGy-cm): 751.74 FINDINGS: Brain: Normal. No hemorrhage. Unremarkable white matter. No mass effect. Cerebral ventricles: No ventriculomegaly. Paranasal sinuses: Visualized sinuses are unremarkable. No fluid levels. Mastoid air cells: Visualized mastoid air cells are well aerated. Bones/joints: Unremarkable. No acute fracture. Soft tissues: Unremarkable. CT/CT head wo con* [id number] IMPRESSION: No acute intracranial abnormality.
--- NOTE | 2021-03-14 22:02 | W.ED.SEIZURE ---
HPI - Seizure General: Chief Complaint: Seizure Stated Complaint: SEIZURES Time Seen by Provider: 03/14/21 21:56 Source: patient and EMS Mode of arrival: EMS Limitations: no limitations History of Present Illness: HPI Narrative: 25-year-old female has a history of seizures states she was just restarted on her Lamictal. Family per EMS states she has 2-3 seizures every day but today has had 10. Patient was doing normal and then when she got the room she started to seize. She was just having jerking movements I was asking her questions during this and she would wake up and answer. She had no fever no head injury no worsening improving factors no recent illness. Associated symptoms: Deny chest pain, chills or fever(s) Review of Systems Const: Denies: fever(s), chills, body aches or change in appetite Eyes: Denies: blurry vision or eye discomfort ENMT: Denies: throat pain or dental pain Card: Denies: chest pain Resp: Denies: dyspnea GI: Denies: abdominal pain, nausea, vomiting or diarrhea : Denies: dysuria Musc: Denies: neck pain or back pain Skin/Breast: Denies: rash Neuro: Reports: seizure-like activity Psych: Denies: depression Harinder/Lymph: Denies: easy bruising All/Imm: Denies: urticaria PFSH ED PFSH: Social History Smoking and tobacco status: current every day smoker Physical Exam Const: COMMON NORMALS: no acute distress, patient oriented x3 and healthy appearing HENMT: COMMON NORMALS: normocephalic and atraumatic HEAD & SCALP: normocephalic and atraumatic Eye: COMMON NORMALS: Equal, round and reactive pupils present and EOMs intact bilaterally PUPIL: Yes Equal, round and reactive pupils present Neck/C-Spine: COMMON NORMALS: full ROM and supple Chest: COMMONS NORMALS: normal inspection of the chest and normal palpation of entire chest wall Resp: COMMON NORMALS: normal respiratory effort, No retractions, No use of accessory muscles and clear to auscultation bilaterally AUSCULTATION: clear to auscultation bilaterally Cardio: COMMON NORMALS: regular rate, regular rhythm and No murmurs present (Cardio) RATE: regular rate RHYTHM: regular rhythm GI: COMMON NORMALS: Normal to inspection, nondistended, normoactive bowel sounds present, Soft to palpation, non-tender and no masses PALPATION: Yes Soft to palpation Extremity: COMMON NORMALS: normal to inspection and full ROM Neuro: COMMON NORMALS: patient oriented x3, moves all extremities and no focal motor deficits Psych: COMMON NORMALS: mental status grossly normal, Normal thought process present and cooperative THOUGHT PROCESS: Normal thought process present Skin: COMMON NORMALS: no rashes or lesions noted and no wounds GENERAL SKIN EXAM: no rashes or lesions noted Course Vital Signs: Vital signs: Vital Signs Temperature 98.4 F 03/14/21 22:12 Pulse Rate 72 03/14/21 22:37 Respiratory Rate 21 H 03/14/21 22:37 Blood Pressure 105/56 03/14/21 22:37 Pulse Oximetry 95 03/14/21 22:37 MDM - Seizure MDM Narrative: Medical decision making narrative: Patient presents with a seizure as a long history of seizures she is well-appearing here back to baseline. She is no signs of head injury or meningitis head CT and blood work is normal she is to follow-up with neurologist and return if worsening. Lab Data: Labs: Lab Results 03/14/21 03/14/21 03/14/21 22:15 22:15 22:15 WBC 15.3 10^3/uL H 10 ^3/uL (4.0-10.0) RBC 4.85 10^6/uL 10^6 /uL (4.1-5.3) Hgb 14.2 g/dL g/dL (11.5-15.3) Hct 44.7 % % (37.0-47.0) MCV 92.2 fl fl (81-99) MCH 29.3 pg pg (28.0-34.0) MCHC 31.8 g/dL g/dL (30.0-36.0) RDW 16.4 % H % (12.1-15.1) Plt Count 313 10^3/cmm 10^3 /cmm (130-400) MPV 11.5 fL H fL (7.4-10.4) Neut % (Auto) 62.5 % % Lymph % (Auto) 29.6 % % [place] % (Auto) 4.7 % % Eos % (Auto) 2.2 % % Baso % (Auto) 0.7 % % Neut # (Auto) 9.54 10^3/uL H 10 ^3/uL (1.8-7.7) Lymph # (Auto) 4.5 10^3/uL 10^3/ uL (0.8-4.8) [place] # (Auto) 0.7 10^3/uL 10^3/ uL (0.2-0.9) Eos # (Auto) 0.3 10^3/uL 10^3/ uL (0.0-0.8) Baso # (Auto) 0.1 10^3/uL 10^3/ uL (0.0-0.1) Nucleated RBC % (a uto) 0 % % Nucleated RBCs # 0.0 /100WBC /100W BC Sodium 140 mmol/L mmol/L (136-145) Potassium 3.6 mmol/L mmol/L (3.5-5.1) Chloride 104 mmol/L mmol/L (98-107) Carbon Dioxide 22 mmol/L mmol/L (22-29) Anion Gap 17.6 (5-19) BUN 15 mg/dL mg/dL (6-20) Creatinine 0.7 mg/dL mg/dL (0.5-0.9) GFR Calculation 103.7 mL/min mL/m in (90-130) Glucose 89 mg/dL mg/dL (65-115) Calculated Osmolal ity 290 mOsm/kg mOsm/ kg (285-295) Calcium 8.9 mg/dL mg/dL (8.5-10.5) Total Bilirubin 0.2 mg/dL mg/dL (0.15-1.2) AST 10 U/L U/L (0-32) ALT 9 U/L U/L (0-33) Alkaline Phosphata se 128 IU/L H IU/L (35-105) Total Protein 6.5 g/dL L g/dL (6.6-8.7) Albumin 4.2 g/dL g/dL (3.5-5.2) Globulin 2.3 g/dL g/dL (1.3-4.6) HCG, Qual Negative (Negative) Imaging Data^: CT Head: Attestation: I personally reviewed and interpreted this imaging study as follows: Radiologist's impression: No acute intracranial abnormality. Discharge Plan Discharge Patient Disposition: Home Clinical Impression: Generalized seizure Condition: Stable Prescriptions: No Action lamotrigine [Lamictal] 25 mg tablet 75 mg PO DAILY RF: 0 [id number] 1 mg Tablet 1 tab PO DAILY RF: 0 acetaminophen [Tylenol Extra Strength] 500 mg Tablet 500 mg PO Q6H PRN (Reason: Pain) RF: 0 sertraline 50 mg Tablet 50 mg PO DAILY RF: 0 ibuprofen 800 mg Tablet 800 mg PO TID Qty: 45 RF: 0 nifedipine 30 mg tablet extended release 30 mg PO DAILY Qty: 30 RF: 0 ibuprofen 800 mg tablet 800 mg PO Q8H PRN (Reason: pain) Qty: 30 RF: 0 albuterol sulfate 90 mcg/actuation HFA aerosol inhaler 2 inh inhalation Q6H PRN (Reason: shortness of breath or wheezing) Qty: 8.5 RF: 0 Discharge Orders: Discharge ED (Routine); Ordered 03/14/21 Ordered By: Mala Kenney Referrals: Zhang Snell MD [Primary Care Provider] - 1-3 days Discharge Diet: Advance as tolerated Discharge Activity: Resume usual activity Patient Instructions: Recurrent Seizures in Adults (ED) Coding Level of Care Code ED Deliverer Merchandise for Chg Fwd Exam Comprehensive
[2021-03-14 22:03] VITALS: BMI 24.0
[2021-03-14 22:07] VITALS: BP 123/57; PULSE 79; RESP 25; O2SAT 98
[2021-03-14 22:12] VITALS: TEMP 36.9
[2021-03-14 22:35] LABS: Basophils # 0.1 10^3/uL (0.0-0.1); Basophils % 0.7 %; Eosinophils # 0.3 10^3/uL (0.0-0.8); Eosinophils % 2.2 %; Hematocrit 44.7 % (37.0-47.0); Hemoglobin 14.2 g/dL (11.5-15.3); Lymphocytes # 4.5 10^3/uL (0.8-4.8); Lymphocytes % 29.6 %; Mean Corpuscular HGB Conc 31.8 g/dL (30.0-36.0); Mean Corpuscular Hemoglobin 29.3 pg (28.0-34.0); Mean Corpuscular Volume 92.2 fl (81-99); Mean Platelet Volume 11.5 fL (7.4-10.4); Monocytes # 0.7 10^3/uL (0.2-0.9); Monocytes % 4.7 %; Neutrophils # 9.54 10^3/uL (1.8-7.7); Neutrophils % 62.5 %; Nucleated Red Blood Cells % 0 %; Platelet Count 313 10^3/cmm (130-400); Red Blood Count 4.85 10^6/uL (4.1-5.3); Red Cell Distribution Width 16.4 % (12.1-15.1); White Blood Count 15.3 10^3/uL (4.0-10.0)
[2021-03-14 22:37] VITALS: BP 105/56; PULSE 72; RESP 21; O2SAT 95
[2021-03-14 22:47] LABS: HCG, Serum Qual Negative (Negative)
[2021-03-14 22:52] LABS: Alanine Aminotransferase 9 U/L (0-33); Albumin Level 4.2 g/dL (3.5-5.2); Alkaline Phosphatase 128 IU/L (35-105); Anion Gap 17.6 (5-19); Aspartate Amino Transferase 10 U/L (0-32); Blood Urea Nitrogen 15 mg/dL (6-20); Calcium 8.9 mg/dL (8.5-10.5); Carbon Dioxide 22 mmol/L (22-29); Chloride 104 mmol/L (98-107); Creatinine Clr Calc Pharmacy 114.8829; Globulin 2.3 g/dL (1.3-4.6); Glomerular Filtration Rate 103.7 mL/min (90-130); Glucose 89 mg/dL (65-115); Osmolality Calculated 290 mOsm/kg (285-295); Potassium 3.6 mmol/L (3.5-5.1); Sodium 140 mmol/L (136-145); Total Bilirubin 0.2 mg/dL (0.15-1.2); Total Protein 6.5 g/dL (6.6-8.7)
[2021-03-14 23:15] VITALS: BP 110/70; PULSE 80; RESP 18; O2SAT 97
== END 2021-03-14 23:05 | disposition home or self-care (01) ==
PROVIDERS: Emergency Provider Emergency Medicine; PCP Family Medicine
DX: G40.409 Other generalized epilepsy and epileptic syndromes, not intractable, without status epilepticus (principal); F17.210 Nicotine dependence, cigarettes, uncomplicated
CPT/HCPCS: 70450; 80053; 84703; 85025; 96374; 99283; J2060

== ENCOUNTER → 2021-08-05 09:30 | Outpatient (BNVA) | payer OTHER, SELFPAY | PROVIDERS: PCP Family Medicine; Visit Provider Nurse Practitioner Psychiatric/Mental Health | DX: F25.1 Schizoaffective disorder, depressive type (principal); F43.12 Post-traumatic stress disorder, chronic; Z03.89 Encounter for observation for other suspected diseases and conditions ruled out | CPT/HCPCS: 90792; 80053; 80061; 82652; 83036; 84443; 85025 ==

== ENCOUNTER 2021-08-09 14:56 | Emergency (ER) | payer MEDICAID, SELFPAY ==
[2021-08-09 15:27] VITALS: BP 103/68; PULSE 96; RESP 17; TEMP 37.2; O2SAT 96; BMI 20.5
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
[2021-08-09 16:44] LABS: Basophils # 0.1 10^3/uL (0.0-0.1); Basophils % 0.9 %; Eosinophils % 0.4 %; Hematocrit 42.5 % (37.0-47.0); Hemoglobin 14.6 g/dL (11.5-15.3); Lymphocytes # 2.3 10^3/uL (0.8-4.8); Lymphocytes % 21.1 %; Mean Corpuscular HGB Conc 34.4 g/dL (30.0-36.0); Mean Corpuscular Hemoglobin 29.7 pg (28.0-34.0); Mean Corpuscular Volume 86.6 fl (81-99); Mean Platelet Volume 10.3 fL (7.4-10.4); Monocytes # 0.5 10^3/uL (0.2-0.9); Monocytes % 4.9 %; Neutrophils % 72.3 %; Nucleated Red Blood Cells % 0 %; Platelet Count 326 10^3/cmm (130-400); Red Blood Count 4.91 10^6/uL (4.1-5.3); Red Cell Distribution Width 15.1 % (12.1-15.1); White Blood Count 10.9 10^3/uL (4.0-10.0)
[2021-08-09 16:51] LABS: Acetaminophen < 5.0 ug/mL (10-30); Alanine Aminotransferase 10 U/L (0-33); Alkaline Phosphatase 123 IU/L (35-105); Anion Gap 21.1 (5-19); Aspartate Amino Transferase 11 U/L (0-32); Blood Urea Nitrogen 9 mg/dL (6-20); Calcium 9.9 mg/dL (8.5-10.5); Carbon Dioxide 21 mmol/L (22-29); Chloride 102 mmol/L (98-107); Glomerular Filtration Rate 103.7 mL/min (90-130); Glucose 72 mg/dL (65-115); Osmolality Calculated 287 mOsm/kg (285-295); Potassium 4.1 mmol/L (3.5-5.1); Salicylate < 0.3 mg/dL (3-10); Sodium 140 mmol/L (136-145); Total Bilirubin 1.2 mg/dL (0.15-1.2)
[2021-08-09 17:09] VITALS: BP 126/51; PULSE 88; RESP 18
[2021-08-09 18:23] VITALS: BP 144/61; PULSE 74; RESP 18; TEMP 36.6; O2SAT 96
== END 2021-08-09 19:29 | disposition home or self-care (01) ==
LOC: ER 17:36 → NP 18:01
PROVIDERS: Emergency Provider Emergency Medicine; PCP Family Medicine
DX: F32.A Depression, unspecified (principal); F25.1 Schizoaffective disorder, depressive type
CPT/HCPCS: 80053; 80307; 85025; 99283

== ENCOUNTER 2021-11-20 16:12 | Emergency (ER) | payer MEDICAID, SELFPAY ==
[2021-11-20 16:18] VITALS: BP 110/71; PULSE 95; RESP 16; TEMP 36.7; O2SAT 98; BMI 21.9
[2021-11-20 17:02] LABS: Basophils # 0.1 10^3/uL (0.0-0.1); Basophils % 0.7 %; Eosinophils # 0.2 10^3/uL (0.0-0.8); Hematocrit 46.1 % (37.0-47.0); Hemoglobin 15.3 g/dL (11.5-15.3); Lymphocytes # 3.8 10^3/uL (0.8-4.8); Lymphocytes % 26.6 %; Mean Corpuscular HGB Conc 33.2 g/dL (30.0-36.0); Mean Corpuscular Hemoglobin 30.7 pg (28.0-34.0); Mean Corpuscular Volume 92.6 fl (81-99); Mean Platelet Volume 10.3 fL (7.4-10.4); Monocytes # 0.8 10^3/uL (0.2-0.9); Monocytes % 5.7 %; Neutrophils # 9.45 10^3/uL (1.8-7.7); Neutrophils % 65.7 %; Nucleated Red Blood Cells % 0 %; Platelet Count 392 10^3/cmm (130-400); Red Blood Count 4.98 10^6/uL (4.1-5.3); White Blood Count 14.4 10^3/uL (4.0-10.0)
[2021-11-20 17:40] LABS: Alanine Aminotransferase 7 U/L (0-33); Albumin Level 4.6 g/dL (3.5-5.2); Alkaline Phosphatase 133 U/L (35-105); Aspartate Amino Transferase 10 U/L (0-32); Blood Urea Nitrogen 6 mg/dL (6-20); Calcium 9.6 mg/dL (8.5-10.5); Carbon Dioxide 19 mmol/L (22-29); Chloride 105 mmol/L (98-107); Globulin 2.2 g/dL (1.3-4.6); Glomerular Filtration Rate 151.6 mL/min (90-130); Glucose 82 mg/dL (65-115); Lipase 27 U/L (13-60); Osmolality Calculated 279 mOsm/kg (285-295); Sodium 136 mmol/L (136-145); Total Bilirubin 1.2 mg/dL (0.15-1.2); Total Protein 6.8 g/dL (6.6-8.7)
[2021-11-20 17:41] LABS: Anion Gap 16.3 (5-19); Potassium 4.3 mmol/L (3.5-5.1)
== END 2021-11-20 17:21 | disposition left against medical advice (07) ==
PROVIDERS: Emergency Medicine; Emergency Provider Family Medicine; PCP Family Medicine
DX: R10.10 Upper abdominal pain, unspecified (principal); R11.2 Nausea with vomiting, unspecified; F17.200 Nicotine dependence, unspecified, uncomplicated; Z53.21 Procedure and treatment not carried out due to patient leaving prior to being seen by health care provider
CPT/HCPCS: 80053; 83690; 84702; 85025; 99283

== ENCOUNTER 2021-12-13 15:28 | Emergency (ER) | payer MEDICAID, SELFPAY ==
[2021-12-13] VITALS (20 sets, daily range): BP systolic 102–112; BP diastolic 59–82; PULSE 64–84; RESP 16–26; TEMP 36.8; O2SAT 98–100; BMI 25.7
[2021-12-13 16:50] LABS: Add Urine Microscopic? YES; Bilirubin Urine Neg (Negative); Blood Urine Neg (Negative); Glucose Urine UA Norm (Normal); Ketones Urine 1+ (Negative); Leukocyte Esterase Urine 2+ (Negative); Nitrate Urine Negative (Negative); Protein Urine Neg (Negative); Urine Appearance Hazy (CLEAR); Urine Color Yellow (Yellow); Urobilinogen Urine 1 mg/dL (Negative); pH Urine 5 (5-7)
--- NOTE | 2021-12-13 16:50 | ED_ITS ---
HPI - Seizure General: Chief Complaint: Seizure Stated Complaint: Seizures Time Seen by Provider: 12/13/21 16:50 History of Present Illness: HPI Narrative: Ms. Long is a 26-year-old lady with reported history of seizure disorder typically on Lamictal who presents to the emergency department due to seizures during . Last menstrual period was mid July though patient is unsure of exactly how far along she is. She is G2, P1. Patient reports over the past few days she has had 8-10 seizures per day. Typically these are started by staring off in space and then generalized tonic-clonic activity associated with postictal period. Family is concerned that patient may stop breathing during these events though she has not turned blue. Onset (ago): hour(s) Description of Episode: loss of consciousness and tonic-clonic movement Witnessed: Yes - by Bystander Seizure History: Yes Review of Systems General: Reports: 10 or more systems reviewed and unremarkable except in HPI and below PFSH ED PFSH: Medical History Chronic post-traumatic stress disorder Psychiatric care Schizoaffective disorder, depressive type Social History Smoking and tobacco status: current every day smoker Female Reproductive History: Date of last menstrual period: 08/24/21 Physical Exam Const: COMMON NORMALS: patient oriented x3 and alert GENERAL APPEARANCE: cooperative and well developed HENMT: COMMON NORMALS: normocephalic and atraumatic HEAD & SCALP: normocephalic and atraumatic THROAT: posterior oropharynx normal Eye: COMMON NORMALS: conjunctivae normal CONJUNCTIVA: Yes conjunctivae normal SCLERA: sclerae normal Neck/C-Spine: COMMON NORMALS: supple GENERAL: Yes trachea midline Resp: COMMON NORMALS: normal respiratory effort EFFORT & INSPECTION: Yes able to speak in complete sentences Cardio: COMMON NORMALS: regular rate and regular rhythm RATE: regular rate RHYTHM: regular rhythm GI: COMMON NORMALS: Soft to palpation PALPATION: Yes Soft to palpation and No Tenderness to palpation present (GI) PERCUSSION: normal to percussion Extremity: GENERAL: Yes normal exam except as noted and No edema Neuro: COMMON NORMALS: patient oriented x3, CN's II-XII intact bilaterally, moves all extremities, no focal motor deficits and no sensory deficits noted SENSORIUM/ORIENTATION: Yes alert and No Orientation impaired Psych: COMMON NORMALS: mental status grossly normal and Normal thought process present THOUGHT PROCESS: Normal thought process present Course Vital Signs: Vital signs: Vital Signs Temperature 98.2 F 12/13/21 17:16 Pulse Rate 65 12/13/21 19:57 Respiratory Rate 16 12/13/21 19:57 Blood Pressure 108/78 12/13/21 19:57 Pulse Oximetry 100 12/13/21 19:57 Oxygen Delivery Me thod 12/13/21 18:38 MDM - Seizure MDM Narrative Medical decision making narrative: 26-year-old lady currently presenting with increased seizure frequency. Etiology may be related to time off of antiepileptic medications. No focal or midline findings on physical exam. Laboratory studies without obvious trigger for increase seizure frequency. Lamictal level is subtherapeutic upon chart review. Ultrasound shows single IUP approximately 7 weeks and 6 days with NADEGE 07/26/22. Small region of subacute to chronic appearing subchorionic hemorrhage. I discussed the case with obstetrics on-call who will see the patient in clinic and started the patient to call in the morning for follow-up. The results of ED evaluation were discussed with the patient including prescriptions and/or symptomatic cares (if applicable) including appropriate and responsible use, followup plan, and return precautions. The patient verbalized understanding and felt safe for discharge. Patient discharged in satisfactory condition. Medical Records Attestation: I reviewed the patient's medical records. Lab Data Attestation: I reviewed the patient's lab results. Result diagrams: 12/13/21 16:35 12/13/21 16:35 Labs: Radiology Impressions Ultrasound 12/13/21 18:08 IMPRESSION: 1. Single live intrauterine fetus. EGA based on ultrasound is 7 weeks and 6 days with an NADEGE of 07/26/2022. 2. There is a small region of subacute to chronic appearing subchorionic hemorrhage. Laboratory Results WBC 11.8 10^3/uL (4.0-10.0) H 12/13/21 16:35 RBC 4.52 10^6/uL (4.1-5.3) 12/13/21 16:35 Hgb 14.0 g/dL (11.5-15.3) 12/13/21 16:35 Hct 42.4 % (37.0-47.0) 12/13/21 16:35 MCV 93.8 fl (81-99) 12/13/21 16:35 MCH 31.0 pg (28.0-34.0) 12/13/21 16:35 MCHC 33.0 g/dL (30.0-36.0) 12/13/21 16:35 RDW 14.0 % (12.1-15.1) 12/13/21 16:35 Plt Count 295 10^3/cmm (130-400) 12/13/21 16:35 MPV 10.6 fL (7.4-10.4) H 12/13/21 16:35 Neut % (Auto) 67.8 % 12/13/21 16:35 Lymph % (Auto) 23.2 % 12/13/21 16:35 [place] % (Auto) 6.3 % 12/13/21 16:35 Eos % (Auto) 1.7 % 12/13/21 16:35 Baso % (Auto) 0.6 % 12/13/21 16:35 Neut # (Auto) 7.96 10^3/uL (1.8-7.7) H 12/13/21 16:35 Lymph # (Auto) 2.7 10^3/uL (0.8-4.8) 12/13/21 16:35 [place] # (Auto) 0.7 10^3/uL (0.2-0.9) 12/13/21 16:35 Eos # (Auto) 0.2 10^3/uL (0.0-0.8) 12/13/21 16:35 Baso # (Auto) 0.1 10^3/uL (0.0-0.1) 12/13/21 16:35 Nucleated RBC % (auto) 0 % 12/13/21 16:35 Nucleated RBCs # 0.0 /100WBC 12/13/21 16:35 Sodium 134 mmol/L (136-145) L 12/13/21 16:35 Potassium 3.7 mmol/L (3.5-5.1) 12/13/21 16:35 Chloride 102 mmol/L (98-107) 12/13/21 16:35 Carbon Dioxide 21 mmol/L (22-29) L 12/13/21 16:35 Anion Gap 14.7 (5-19) 12/13/21 16:35 BUN 6 mg/dL (6-20) 12/13/21 16:35 Creatinine 0.6 mg/dL (0.5-0.9) 12/13/21 16:35 GFR Calculation 122.8 mL/min (90-130) 12/13/21 16:35 Glucose 102 mg/dL (65-115) 12/13/21 16:35 Calculated Osmolality 276 mOsm/kg (285-295) L 12/13/21 16:35 Calcium 9.0 mg/dL (8.5-10.5) 12/13/21 16:35 Total Bilirubin 0.4 mg/dL (0.15-1.2) 12/13/21 16:35 AST 9 U/L (0-32) 12/13/21 16:35 ALT 7 U/L (0-33) 12/13/21 16:35 Alkaline Phosphatase 112 U/L (35-105) H 12/13/21 16:35 Total Protein 7.0 g/dL (6.6-8.7) 12/13/21 16:35 Albumin 4.0 g/dL (3.5-5.2) 12/13/21 16:35 Globulin 3.0 g/dL (1.3-4.6) 12/13/21 16:35 Ser , Semi-Qnt 72042.00 mIU/mL 12/13/21 16:35 Urine Color Yellow (Yellow) 12/13/21 16:10 Urine Appearance Hazy (CLEAR) A 12/13/21 16:10 Urine pH 5 (5-7) 12/13/21 16:10 Ur Specific [place] 1.020 (1.005-1.030) 12/13/21 16:10 Urine Protein Neg (Negative) 12/13/21 16:10 Urine Glucose (UA) Norm (Normal) 12/13/21 16:10 Urine Ketones 1+ (Negative) H 12/13/21 16:10 Urine Blood Neg (Negative) 12/13/21 16:10 Urine Nitrate Negative (Negative) 12/13/21 16:10 Urine Bilirubin Neg (Negative) 12/13/21 16:10 Urine Urobilinogen 1 mg/dL (Negative) H 12/13/21 16:10 Ur Leukocyte Esterase 2+ (Negative) H 12/13/21 16:10 Urine RBC None /hpf (0-2) 12/13/21 16:10 Urine WBC 10-15 /hpf (0-5) H 12/13/21 16:10 Ur Squamous Epith Cells 10-15 /hpf (0-5) H 12/13/21 16:10 Amorphous Sediment Not Reportable 12/13/21 16:10 Urine Bacteria 2+ /hpf (NONE) H 12/13/21 16:10 Urine Mucus 1+ /hpf 12/13/21 16:10 Urine Opiates Screen Negative ng/mL (Negative) 12/13/21 16:10 Ur Barbiturates Screen Negative ng/mL (Negative) 12/13/21 16:10 Lamotrigine 1.8 mcg/mL (4.0-18.0) L 12/13/21 16:35 Ur Phencyclidine Scrn Negative ng/mL (Negative) 12/13/21 16:10 Ur Amphetamines Screen Negative ng/mL (Negative) 12/13/21 16:10 U Benzodiazepines Scrn Negative ng/mL (Negative) 12/13/21 16:10 Urine Cocaine Screen Negative ng/mL (Negative) 12/13/21 16:10 U Marijuana (THC) Screen Positive ng/mL (Negative) H 12/13/21 16:10 Discharge Plan Discharge Patient Disposition: Home Clinical Impression: Generalized seizure Condition: Stable Prescriptions: New Lamictal 100 mg tablet 100 mg PO BID Qty: 60 2RF diazepam 10 mg/spray (0.1 mL) spray,non-aerosol 10 mg intranasal Q10M PRN (Reason: seizures) Qty: 2 2RF Rx Instructions: Seizures lasting longer than 5 minutes or multiple in a row, call 911 No Action acetaminophen [Tylenol Extra Strength] 500 mg Tablet 500 mg PO Q6H PRN (Reason: Pain) albuterol sulfate 90 mcg/actuation HFA aerosol inhaler 2 inh inhalation Q6H PRN (Reason: shortness of breath or wheezing) Qty: 8.5 0RF ibuprofen 800 mg tablet 800 mg PO TID PRN (Reason: Pain) Discharge Orders: Discharge ED (Routine); Ordered 12/13/21 Ordered By: Andreas Bonilla Referrals: Zhang Snell MD [Primary Care Provider] - Discharge Diet: Usual diet Discharge Activity: Limit activity as instructed Patient Instructions: Recurrent Seizures in Adults (ED), Epilepsy and (ED) Activity Restrictions/Additional Instructions: Thank you for visiting the emergency department. You were seen and evaluated for seizure. The most likely cause of your seizure is related to not being on medication. Please continue your medications as previously prescribed. Please follow-up with Dr. Rivera. Call her office at [phone] in the morning and let them know that the ER discussed your care with Dr. Rivera. Please follow-up with a neurologist. Return to the emergency department for anything that you are concerned about a feel needs emergency department evaluation. Coding Level of Care Code ED Painter Helper Sign for Naomi Munoz
[2021-12-13 16:51] LABS: Add Urine Culture? No; Bacteria Urine 2+ /hpf; Mucus Urine 1+ /hpf
[2021-12-13 16:52] LABS: Basophils # 0.1 10^3/uL (0.0-0.1); Basophils % 0.6 %; Eosinophils # 0.2 10^3/uL (0.0-0.8); Eosinophils % 1.7 %; Hematocrit 42.4 % (37.0-47.0); Lymphocytes # 2.7 10^3/uL (0.8-4.8); Lymphocytes % 23.2 %; Mean Corpuscular Volume 93.8 fl (81-99); Mean Platelet Volume 10.6 fL (7.4-10.4); Monocytes # 0.7 10^3/uL (0.2-0.9); Monocytes % 6.3 %; Neutrophils # 7.96 10^3/uL (1.8-7.7); Neutrophils % 67.8 %; Nucleated Red Blood Cells % 0 %; Platelet Count 295 10^3/cmm (130-400); Red Blood Count 4.52 10^6/uL (4.1-5.3); White Blood Count 11.8 10^3/uL (4.0-10.0)
[2021-12-13 17:12] LABS: Amphetamines Screen Urine Negative (Negative); Barbiturates Screen Urine Negative (Negative); Benzodiazepines Screen Urine Negative (Negative); Cocaine Screen Urine Negative (Negative); Opiate Screen Urine Negative (Negative); PCP Screen Urine Negative (Negative); THC Screen Urine Positive (Negative)
[2021-12-13 17:16] LABS: Alanine Aminotransferase 7 U/L (0-33); Alkaline Phosphatase 112 U/L (35-105); Anion Gap 14.7 (5-19); Aspartate Amino Transferase 9 U/L (0-32); Blood Urea Nitrogen 6 mg/dL (6-20); Carbon Dioxide 21 mmol/L (22-29); Chloride 102 mmol/L (98-107); Creatinine Clr Calc Pharmacy 121.7792; Glomerular Filtration Rate 122.8 mL/min (90-130); Glucose 102 mg/dL (65-115); Osmolality Calculated 276 mOsm/kg (285-295); Potassium 3.7 mmol/L (3.5-5.1); Sodium 134 mmol/L (136-145); Total Bilirubin 0.4 mg/dL (0.15-1.2)
--- NOTE | 2021-12-13 18:08 | USR_ITS ---
PROCEDURE INFORMATION: Exam: US First Trimester, Transabdominal and US , Transvaginal Exam date and time: 12/13/2021 6:21 PM Age: 26 years old Clinical indication: Lmp or gestational age (in weeks): 7w6d mother having seizures and worried; ; Patient HX: ; Additional info: , unknown how far along, seizures LABS AND CLINICAL REPORTS: Serum Choriogonadotropin (HCG): 86225 mIU/mL Last menstrual period start date: Unknown; 08/24/2021 Gestational age (Established): 7 w 6 d Estimated due date (Established): 07/26/2022 TECHNIQUE: Imaging protocol: Real-time transabdominal obstetrical ultrasound of the maternal pelvis and a first trimester , less than 14 weeks 0 days, with image documentation. Transvaginal imaging was used for better evaluation of the fetus, adnexa, and/or cervix. COMPARISON: CT kidney stone [id number] 12/26/2018 5:39 PM FINDINGS: Gestation: Intrauterine gestation is visualized. pole is visualized. Yolk sac is visualized. Yolk sac measures 4 mm. Embryonic/ heart rate: 164 bpm Extra-embryonic membranes/Placenta: Anechoic to hypoechoic subchorionic hematoma measures 1.6 cm x 1 cm x 1.5 cm. Amniotic fluid: Amniotic fluid and extra-amniotic fluid is normal for gestational age. BIOMETRY: Gestational age (AUA): 7 w 6 d Estimated due date (AUA): 07/26/2022 Bergman-Rump length (CRL): 15.5 mm. EGA (CRL) is 7 w 6 d MATERNAL: Uterus: Uterus measures 7.4 cm x 8.3 cm x 5.7 cm. Cervix: Cervical length is normal and measures 3.8 cm. Cervix is closed. Right ovary/adnexa: Right ovary measures 6.4 cm x 3.6 cm x 6.2 cm. Right ovarian volume is 75 mL. There is a 5.4 x 3.2 x 3.3 cm simple cyst in the right ovary. Left ovary/adnexa: Left ovary measures 2.1 cm x 1.3 cm x 2.8 cm. Left ovarian volume is 4.4 mL. Small cystic lesion with some internal complexity in the left ovary likely represents a corpus luteum cyst. Intraperitoneal space: No intraperitoneal free fluid. Other findings: nuchal translucency: nuchal translucency is 0 mm. US/US OB <= 14 weeks fetus [id number] IMPRESSION: 1. Single live intrauterine fetus. EGA based on ultrasound is 7 weeks and 6 days with an NADEGE of 07/26/2022. 2. There is a small region of subacute to chronic appearing subchorionic hemorrhage.
[2021-12-13] MEDS: lamoTRIgine 100 mg Tablet PO (19:32)
[2021-12-18 13:33] LABS: Lamotrigine (Lamictal) Level 1.8 mcg/mL (4.0-18.0)
== END 2021-12-13 19:58 | disposition home or self-care (01) ==
PROVIDERS: Emergency Provider Emergency Medicine; PCP Family Medicine
DX: O26.891 Other specified pregnancy related conditions, first trimester (principal); G40.89 Other seizures; O99.331 Smoking (tobacco) complicating pregnancy, first trimester; F17.210 Nicotine dependence, cigarettes, uncomplicated
CPT/HCPCS: 36415; 76801; 80053; 80175; 80306; 81001; 84702; 85025; 99284

== ENCOUNTER → 2021-12-24 11:29 | Outpatient (BNVA) | payer MEDICAID, SELFPAY | PROVIDERS: PCP Family Medicine; Visit Provider Obstetrics & Gynecology | DX: Z34.90 Encounter for supervision of normal pregnancy, unspecified, unspecified trimester (principal); R56.9 Unspecified convulsions | CPT/HCPCS: 84443; 86762; 86803; 87340; 87806 ==

== ENCOUNTER → 2022-01-18 09:37 | Outpatient (BNVA) | payer MEDICAID, SELFPAY | PROVIDERS: PCP Family Medicine; Visit Provider Obstetrics & Gynecology | DX: O09.899 Supervision of other high risk pregnancies, unspecified trimester (principal) | CPT/HCPCS: 80307; 81000; 85025; 86850; 86900; 87086; 87491; 87591; 87661; 88175 ==

== ENCOUNTER 2022-01-26 19:02 | Emergency (ER) | payer MEDICAID, SELFPAY ==
[2022-01-26 19:05] VITALS: BP 128/89; PULSE 89; RESP 16; TEMP 37.1; O2SAT 95
[2022-01-26 19:23] VITALS: BP 112/68; PULSE 80; RESP 20; O2SAT 100
--- NOTE | 2022-01-26 19:44 | ED_ITS ---
HPI - SOB/Dyspnea General: Chief Complaint: Shortness of Breath/Dyspnea Stated Complaint: SOB throat swelling Time Seen by Provider: 01/26/22 19:23 History of Present Illness: HPI Narrative: Patient comes in with shortness of breath. States that she cannot breathe and has been able to for most of today. Has a cough, denies fever. States she was diagnosed with influenza week ago. Associated symptoms: Reports fever(s); Deny abdominal pain, chest pain, nausea, palpitations, polyuria or vomiting Review of Systems Const: Reports: fever(s) and body aches Eyes: Denies: change in vision or blurry vision ENMT: Reports: hoarseness; Denies: throat pain or odynophagia Card: Denies: chest pain or palpitations Resp: Reports: dyspnea; Denies: productive cough GI: Denies: abdominal pain, nausea or vomiting : Denies: flank pain or dysuria Musc: Denies: neck pain or back pain Skin/Breast: Denies: rash or pruritus Neuro: Denies: headache(s) or numbness in extremities Psych: Reports: anxiety; Denies: change in appetite Endo: Denies: polyuria or excessive sweating PFSH ED PFSH: Medical History Chronic post-traumatic stress disorder Psychiatric care Schizoaffective disorder, depressive type Family History Grandmother Hypertension Other Diabetes Denies family history of Colon cancer Ovarian cancer Heart disease Hypercholesteremia Breast cancer Uterine cancer Thyroid disease Stroke Social History Smoking and tobacco status: current some day smoker Female Reproductive History: Date of last menstrual period: 08/24/21 Physical Exam Const: COMMON NORMALS: patient oriented x3, healthy appearing and alert HENMT: COMMON NORMALS: normocephalic and atraumatic HEAD & SCALP: normocephalic and atraumatic Eye: COMMON NORMALS: Equal, round and reactive pupils present and EOMs intact bilaterally PUPIL: Yes Equal, round and reactive pupils present Neck/C-Spine: COMMON NORMALS: full ROM and supple Resp: COMMON NORMALS: No retractions and No use of accessory muscles OTHER: Patient initially tachypneic, no accessory muscle use, no stridor. When she closes her mouth breathes through her nose her respirations normalized and her exam is unremarkable. Cardio: COMMON NORMALS: regular rate and regular rhythm RATE: regular rate RHYTHM: regular rhythm GI: COMMON NORMALS: Normal to inspection, nondistended, normoactive bowel sounds present, Soft to palpation and non-tender PALPATION: Yes Soft to palpation Back/Pelvis: COMMON NORMALS: thoracic and lumbar spine normal to inspection and no thoracic nor lumbar tenderness Extremity: COMMON NORMALS: normal to inspection and full ROM Neuro: COMMON NORMALS: patient oriented x3 SENSORIUM/ORIENTATION: Yes alert Psych: COMMON NORMALS: mental status grossly normal and cooperative Skin: COMMON NORMALS: no wounds Course Vital Signs: Vital signs: Vital Signs Temperature 98.8 F 01/26/22 19:05 Pulse Rate 80 01/26/22 19:23 Respiratory Rate 20 H 01/26/22 19:23 Blood Pressure 112/68 01/26/22 19:23 Pulse Oximetry 100 01/26/22 19:23 Oxygen Delivery Me thod 01/26/22 19:23 MDM - SOB/Dyspnea Medical Decision Making Patient comes in with shortness of breath. States that she cannot breathe and has been able to for most of today. On initial exam she has taking very short rapid breaths and will not take a deep breath, stating she cannot. When I asked her to close her mouth and breathe through her nose she is able to breathe completely normal. She slows her breathing down and takes nice deep breaths. Her lungs are clear to auscultation. No stridor. Exam shows no erythema, swelling, or other concerning findings in her oropharynx. States that she has been under a lot of stress recently and not getting very much sleep due to being diagnosed with influenza last week. Patient is also 18 weeks . With her breathing through her nose her physical exam is normal and she is back to her baseline. Will discharge home at this time with precautions to return for worsening or changing symptoms. Discharge Plan Discharge Patient Disposition: Home Clinical Impression: Stress reaction Condition: Stable Prescriptions: No Action ondansetron HCl 4 mg tablet 4 mg PO Q6H Qty: 30 2RF promethazine 25 mg tablet 25 mg PO Q6H PRN (Reason: nausea and vomiting) Qty: 30 2RF albuterol sulfate 90 mcg/actuation HFA aerosol inhaler 2 inh inhalation Q6H PRN (Reason: shortness of breath or wheezing) Qty: 8.5 0RF Lamictal 100 mg tablet 100 mg PO BID Qty: 60 2RF Discharge Orders: Discharge ED (Routine); Ordered 01/26/22 Ordered By: Zhang Dailey Referrals: Zhang Snell MD [Primary Care Provider] - Coding Level of Care Code ED Process Stripper for Chg Tammy
[2022-01-26 19:52] VITALS: BP 121/82; PULSE 75; RESP 16; O2SAT 99
== END 2022-01-26 19:50 | disposition home or self-care (01) ==
PROVIDERS: Emergency Provider Emergency Medicine; PCP Family Medicine
DX: F43.9 Reaction to severe stress, unspecified (principal); F17.210 Nicotine dependence, cigarettes, uncomplicated
CPT/HCPCS: 99283

== ENCOUNTER 2022-01-30 13:43 | Inpatient (IN) | payer OTHER, SELFPAY ==
[2022-01-30 13:44] VITALS: BP 119/75; PULSE 95; RESP 16; TEMP 36.8; O2SAT 96; BMI 22.3
[2022-01-30 14:25] LABS: HCG Qualitative Urine. Positive (Negative)
[2022-01-30 14:29] LABS: Urine Appearance Hazy (CLEAR); Urine Color Yellow (Yellow); pH Urine 6 (5-7)
[2022-01-30 14:30] LABS: Add Urine Microscopic? YES; Bilirubin Urine Neg (Negative); Blood Urine 2+ (Negative); Glucose Urine UA Norm (Normal); Ketones Urine 1+ (Negative); Leukocyte Esterase Urine 1+ (Negative); Nitrate Urine Negative (Negative); Protein Urine Neg (Negative); Urobilinogen Urine Norm (Negative)
[2022-01-30 14:46] LABS: Add Urine Culture? No; Bacteria Urine 2+ /hpf; RBC Urine 0-4 /hpf (0-2)
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
[2022-01-30 15:37] LABS: Basophils # 0.1 10^3/uL (0.0-0.1); Basophils % 0.3 %; Eosinophils # 0.1 10^3/uL (0.0-0.8); Eosinophils % 0.9 %; Hematocrit 37.8 % (37.0-47.0); Hemoglobin 12.8 g/dL (11.5-15.3); Lymphocytes # 2.5 10^3/uL (0.8-4.8); Lymphocytes % 16.9 %; Mean Corpuscular HGB Conc 33.9 g/dL (30.0-36.0); Mean Corpuscular Hemoglobin 30.9 pg (28.0-34.0); Mean Corpuscular Volume 91.3 fl (81-99); Mean Platelet Volume 10.8 fL (7.4-10.4); Monocytes # 0.7 10^3/uL (0.2-0.9); Monocytes % 4.4 %; Neutrophils # 11.52 10^3/uL (1.8-7.7); Neutrophils % 76.7 %; Nucleated Red Blood Cells % 0 %; Platelet Count 320 10^3/cmm (130-400); Red Blood Count 4.14 10^6/uL (4.1-5.3); Red Cell Distribution Width 14.3 % (12.1-15.1)
[2022-01-30 15:55] LABS: Alanine Aminotransferase 6 U/L (0-33); Albumin Level 3.4 g/dL (3.5-5.2); Alkaline Phosphatase 97 U/L (35-105); Anion Gap 13.6 (5-19); Aspartate Amino Transferase 7 U/L (0-32); Blood Urea Nitrogen 5 mg/dL (6-20); Calcium 9.3 mg/dL (8.5-10.5); Carbon Dioxide 22 mmol/L (22-29); Chloride 106 mmol/L (98-107); Glomerular Filtration Rate 273.3 mL/min (90-130); Glucose 77 mg/dL (65-115); Osmolality Calculated 282 mOsm/kg (285-295); Potassium 3.6 mmol/L (3.5-5.1); Sodium 138 mmol/L (136-145); Total Bilirubin 0.2 mg/dL (0.15-1.2); Total Protein 6.4 g/dL (6.6-8.7)
[2022-01-30 15:56] LABS: Acetaminophen < 5.0 ug/mL (10-30); Alcohol Level < 10 mg/dL (0-10); Salicylate < 0.3 mg/dL (3-10)
[2022-01-30 16:06] VITALS: RESP 15; O2SAT 100
[2022-01-30 16:43] VITALS: BP 126/84; PULSE 86; RESP 18; TEMP 36.6; O2SAT 95
[2022-01-30] MEDS: hyDROXYzine 25 mg Capsule 50 MG PO (17:05)
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
[2022-01-30 19:51] VITALS: BP 92/60; PULSE 77; RESP 18; TEMP 36.7; O2SAT 99
[2022-01-30 23:36] LABS: Amphetamines Screen Urine Negative (Negative); Barbiturates Screen Urine Negative (Negative); Benzodiazepines Screen Urine Positive (Negative); Cocaine Screen Urine Negative (Negative); Opiate Screen Urine Negative (Negative); PCP Screen Urine Negative (Negative); THC Screen Urine Positive (Negative)
[2022-01-31] MEDS: cetylpyridinium Lozenge 1 EACH MUCOUS MEM (01:17)
[2022-01-31 06:00] VITALS: BP 111/62; PULSE 76; RESP 17; TEMP 36.8; O2SAT 98
[2022-01-31] MEDS: cephALEXin 500 mg Capsule PO ×2 (08:42→18:22)
[2022-01-31] MEDS: lamoTRIgine 100 mg Tablet PO ×2 (08:42→18:22)
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
[2022-01-31 14:00] VITALS: BP 120/76; PULSE 85; RESP 16; TEMP 36.6; O2SAT 96
[2022-01-31 21:23] VITALS: BP 106/60; PULSE 78; RESP 16; TEMP 36.6; O2SAT 97
[2022-02-01 06:00] VITALS: BP 109/72; PULSE 70; RESP 16; TEMP 36.9; O2SAT 96
[2022-02-01] MEDS: lamoTRIgine 100 mg Tablet PO ×2 (08:55→18:00)
[2022-02-01] MEDS: cephALEXin 500 mg Capsule PO ×2 (08:55→18:00)
--- NOTE | 2022-02-01 13:08 | PC.NURSE ---
heart tones assessed, FHTs 150s.
[2022-02-01 14:00] VITALS: BP 118/69; PULSE 88; RESP 16; TEMP 36.8; O2SAT 95
[2022-02-01 15:58] VITALS: PULSE 87; RESP 18; O2SAT 98
--- NOTE | 2022-02-01 17:50 | W.PM.NPUPNS ---
Subjective NPU Subjective: Patient presented today very concerned about seeing her daughter before she leaves. We discussed the importance of her being well and having the services in place to assist her now as well as in the 4-1/2 to 5 months which she has a 2-year-old and a to take care of. We talked about this dissociative fugue and concerns regarding time lapsed when she is not aware. Mental Status Exam MSE Comments: This is a slender white female in hospital scrubs with adequate grooming and limited eye contact. No abnormal movements except for mild psychomotor retardation. Cooperative with exam in mild distress. Speech was normal rate and volume. Mood described as ?good just missing my family?, affect is congruent. Thought process, organized. Thought content: patient denies suicidal or homicidal ideation, no delusions reported or noted and denies any auditory or visual hallucinations. Attention and concentration are intact and memory appeared reliable but none were formally tested. She is alert and oriented times three. Insight and judgment are limited. Impulse control is limited. Vitals/I&O/Wt Last Vital Signs Temp 98.7 F 02/01/22 22:00 Pulse 92 02/01/22 22:00 Resp 16 02/01/22 22:00 BP 118/69 02/01/22 22:00 Pulse Ox 97 02/01/22 22:00 O2 Del Method 02/01/22 22:00 Data NPU 01/30/22 15:30 01/30/22 15:30 A&P Assessment and plan (1) Abdominal pain complicating : (2) contractions: (3) Chronic post-traumatic stress disorder: (4) Seizure disorder: (5) Dissociative amnesia with dissociative fugue: (6) Functional neurological symptom disorder with attacks or seizures: Plan This is a 26 year old white woman with a significant history of trauma and genetic loading for mental health, addiction and lethality issues who presents after a recent flashback reporting she was triggered by the show she was watching and cannot remember much of what happened afterwards. 1. Continue current medications 2. Encourage individual, group and milieu therapy 3. Continue q-15 minute check for safety 4. Obtain collateral information on family and work with social work team on Tuesday to look into possible CYS/DFS supports. 5. Consider discharge in the morning. Involuntary Hold Information 96 Hour Hold: 96 Hour Involuntary Admission: No Attestations NPU Medical Necessity Statement*: Inpatient hospitalization is medically necessary and the clinically appropriate intervention at this time. We will monitor medications and make changes as indicated. Likely length of stay is 1-3 days. Coding Level of Care Code Acute [facility] for [facility] Fwd Diagnoses Abdominal pain complicating O26.899; R10.9 contractions O47.9 Chronic post-traumatic stress disorder F43.12 Seizure disorder G40.909 Dissociative amnesia with dissociative fugue F44.1 Functional neurological symptom disorder with attacks or seizures F44.5
[2022-02-01] MEDS: cetylpyridinium Lozenge 1 EACH MUCOUS MEM (21:04)
[2022-02-01 22:00] VITALS: BP 118/69; PULSE 92; RESP 16; TEMP 37.1; O2SAT 97
[2022-02-02] MEDS: cetylpyridinium Lozenge 1 EACH MUCOUS MEM (03:34)
[2022-02-02 06:00] VITALS: BP 103/70; PULSE 73; RESP 18; TEMP 36.7; O2SAT 97
[2022-02-02] MEDS: cephALEXin 500 mg Capsule PO (09:30)
[2022-02-02] MEDS: lamoTRIgine 100 mg Tablet PO (09:30)
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
[2022-02-02 11:51] VITALS: BP 103/70; PULSE 73; RESP 18; TEMP 36.7; O2SAT 97
== END 2022-02-02 13:49 | disposition home or self-care (01) | DRG 832 ==
LOC: ER 15:15 → NP 16:00
PROVIDERS: Admitting Provider Psychiatry & Neurology Psychiatry; Emergency Provider Family Medicine; PCP Family Medicine; Visit Provider Psychiatry & Neurology Psychiatry
DX: O99.342 Other mental disorders complicating pregnancy, second trimester (principal); R45.851 Suicidal ideations; O99.333 Smoking (tobacco) complicating pregnancy, third trimester; F17.210 Nicotine dependence, cigarettes, uncomplicated; F25.1 Schizoaffective disorder, depressive type; Z3A.19 19 weeks gestation of pregnancy; F43.12 Post-traumatic stress disorder, chronic; F41.9 Anxiety disorder, unspecified; Z62.810 Personal history of physical and sexual abuse in childhood; Z88.0 Allergy status to penicillin; J45.909 Unspecified asthma, uncomplicated; F44.1 Dissociative fugue; F44.5 Conversion disorder with seizures or convulsions
CPT/HCPCS: 80053; 80306; 80307; 81001; 81025; 85025; 97150; 97165; 99285; Q0162

== ENCOUNTER 2022-04-11 17:15 | Emergency (ER) | payer MEDICAID, SELFPAY ==
[2022-04-11 17:27] VITALS: BMI 23.1
[2022-04-11 17:33] VITALS: BP 94/54; PULSE 76; RESP 16; TEMP 38; O2SAT 95
[2022-04-11 18:36] LABS: Basophils # 0.1 10^3/uL (0.0-0.1); Basophils % 0.3 %; Eosinophils # 0.1 10^3/uL (0.0-0.8); Eosinophils % 0.6 %; Hematocrit 35.9 % (37.0-47.0); Hemoglobin 11.6 g/dL (11.5-15.3); Lymphocytes # 1.4 10^3/uL (0.8-4.8); Lymphocytes % 8.2 %; Mean Corpuscular HGB Conc 32.3 g/dL (30.0-36.0); Mean Corpuscular Hemoglobin 31.2 pg (28.0-34.0); Mean Corpuscular Volume 96.5 fl (81-99); Monocytes # 0.7 10^3/uL (0.2-0.9); Monocytes % 4.1 %; Neutrophils # 14.65 10^3/uL (1.8-7.7); Neutrophils % 86.2 %; Nucleated Red Blood Cells % 0 %; Platelet Count 273 10^3/cmm (130-400); Red Blood Count 3.72 10^6/uL (4.1-5.3); Red Cell Distribution Width 14.6 % (12.1-15.1)
[2022-04-11] MEDS: ondansetron 2 mg/ML SDV 2 mL 4 MG IVP (18:37)
[2022-04-11] MEDS: sodium chloride 0.9% 1,000 ML 999 ML IV (18:37)
--- NOTE | 2022-04-11 18:44 | XRR_ITS ---
PROCEDURE INFORMATION: Exam: XR Chest Exam date and time: 04/11/2022 6:51 PM Age: 26 years old Clinical indication: Cough and shortness of breath; Additional info: Cough, SOB TECHNIQUE: Imaging protocol: Radiologic exam of the chest. Views: 1 view. COMPARISON: CR XR chest 2V* [id number] 07/21/2020 9:10 AM FINDINGS: Lungs: Wedge-shaped density along the right heart border could represent collapse of the right middle lobe and/or right lower lobe. The left lung is clear. Pleural spaces: Small to medium-sized right pleural effusion. No pneumothorax. Heart/Mediastinum: Gas distended thoracic esophagus. The heart size is normal. Diaphragm: Elevation of the right diaphragm. Bones/joints: Unremarkable. XR/XR chest 1V portable [id number] IMPRESSION: 1. Right pleural effusion. 2. Possible collapse of the right middle lobe and or right lower lobe.
[2022-04-11 18:49] LABS: Alanine Aminotransferase < 5 U/L (0-33); Albumin Level 3.1 g/dL (3.5-5.2); Alkaline Phosphatase 112 U/L (35-105); Aspartate Amino Transferase 7 U/L (0-32); Blood Urea Nitrogen 5 mg/dL (6-20); C Reactive Protein 103.5 mg/L (0.0-4.9); Calcium 8.5 mg/dL (8.5-10.5); Carbon Dioxide 21 mmol/L (22-29); Chloride 105 mmol/L (98-107); Globulin 2.6 g/dL (1.3-4.6); Glomerular Filtration Rate 196.1 mL/min (90-130); Glucose 77 mg/dL (65-115); Osmolality Calculated 282 mOsm/kg (285-295); Sodium 138 mmol/L (136-145); Total Bilirubin 0.4 mg/dL (0.15-1.2); Total Protein 5.7 g/dL (6.6-8.7)
--- NOTE | 2022-04-11 18:49 | W.ED.FEVER ---
HPI - Fever General: Chief Complaint: Fever Stated Complaint: Fever, N/V, over 20 weeks Time Seen by Provider: 04/11/22 18:07 History of Present Illness: Patient is a 26-year-old female who is approximately 24 weeks and presents with multiple complaints. It is somewhat difficult to isolate what is acutely bothering the patient at this time as she states everything when asked about her chief complaint. The patient's is the primary historian and less I specifically insist that the patient answer questions. Patient has reportedly had fevers, cough congestion, shortness of breath, abdominal pain, headaches, and generalized malaise and myalgias for the last 3 to 4 days. She was seen at another facility recently and given a prescription for antibiotic however the does not know what antibiotic it was. He states she was being treated for bronchitis. Patient also has had constipation and has not had a significant bowel movement and a couple of weeks. They were taking MiraLAX however have not taken the last couple of days due to traveling. Patient denies any vaginal bleeding. She does endorse some generalized abdominal discomfort. She denies any exacerbating or alleviating factors. The patient's states that she also has a history of seizure disorder and will frequently have seizures whenever she has a fever. She is not currently taking any of her seizure medicines due to being . Review of Systems Narrative: Patient has a near marcelo positive review of systems. She reports headaches, fevers, chills, malaise, myalgias, sore throat, chest pain, shortness of breath, abdominal pain, nausea, vomiting, constipation, and back pain. Card: Denies: palpitations Skin/Breast: Denies: rash [facility] ED PFSH: Medical History Asthma Chronic post-traumatic stress disorder Psychiatric care Schizoaffective disorder, depressive type Seizures Family History Grandmother Hypertension Other Diabetes Denies family history of Colon cancer Ovarian cancer Heart disease Hypercholesteremia Breast cancer Uterine cancer Thyroid disease Stroke Social History Smoking and tobacco status: current some day smoker Female Reproductive History: Date of last menstrual period: 08/24/21 Physical Exam Const: COMMON NORMALS: no acute distress, average body habitus and well nourished GENERAL APPEARANCE: cooperative and comfortable; not in distress HENMT: COMMON NORMALS: normocephalic and atraumatic HEAD & SCALP: normocephalic and atraumatic MOUTH: Normal oral and palatal mucosa present Eye: COMMON NORMALS: EOMs intact bilaterally and conjunctivae normal CONJUNCTIVA: Yes conjunctivae normal Neck/C-Spine: GENERAL: Yes normal visual inspection and No tracheal deviation Resp: COMMON NORMALS: normal respiratory effort, No retractions and No use of accessory muscles Cardio: COMMON NORMALS: regular rhythm and Peripheral pulses 2+ throughout RHYTHM: regular rhythm PERIPHERAL PULSES: Peripheral pulses 2+ throughout GI: OTHER: Abdomen is gravid. She has mild general abdominal tenderness. Extremity: COMMON NORMALS: normal to inspection, full ROM and no pedal edema Skin: COMMON NORMALS: no rashes or lesions noted GENERAL SKIN EXAM: no rashes or lesions noted Course Vital Signs: Vital signs: Vital Signs Temperature 100.4 F H 04/11/22 17:33 Pulse Rate 76 04/11/22 17:33 Respiratory Rate 16 04/11/22 17:33 Blood Pressure 94/54 04/11/22 17:33 Pulse Oximetry 95 04/11/22 17:33 Oxygen Delivery Me thod 04/11/22 17:33 MDM - Fever Medical Decision Making Patient is a 26-year-old female who presents to the ER with multiple complaints including fever, abdominal pain, headaches, chest pain, shortness of breath, and generalized malaise. Patient has had some nausea vomiting. I had Labor and Delivery, and placed the patient on the OB monitor as they had requested she initially come to the ER for medical evaluation and did not feel that it was OB related. We initiated her work-up and while here labor and delivery noted the patient was having contractions every 1 to 5 minutes. They have requested to take the patient over to labor and delivery. She has not exactly completed her ER evaluation therefore I spoke with Dr. Hodge who is the records management manager on-call. Dr. Hodge will follow-up on pending results and assume care at this time. Lab Data 04/11/22 18:15 04/11/22 18:15 Laboratory Results WBC 17.0 10^3/uL (4.0-10.0) H 04/11/22 18:15 RBC 3.72 10^6/uL (4.1-5.3) L 04/11/22 18:15 Hgb 11.6 g/dL (11.5-15.3) 04/11/22 18:15 Hct 35.9 % (37.0-47.0) L 04/11/22 18:15 MCV 96.5 fl (81-99) 04/11/22 18:15 MCH 31.2 pg (28.0-34.0) 04/11/22 18:15 MCHC 32.3 g/dL (30.0-36.0) 04/11/22 18:15 RDW 14.6 % (12.1-15.1) 04/11/22 18:15 Plt Count 273 10^3/cmm (130-400) 04/11/22 18:15 MPV 11.0 fL (7.4-10.4) H 04/11/22 18:15 Neut % (Auto) 86.2 % 04/11/22 18:15 Lymph % (Auto) 8.2 % 04/11/22 18:15 [place] % (Auto) 4.1 % 04/11/22 18:15 Eos % (Auto) 0.6 % 04/11/22 18:15 Baso % (Auto) 0.3 % 04/11/22 18:15 Neut # (Auto) 14.65 10^3/uL (1.8-7.7) H 04/11/22 18:15 Lymph # (Auto) 1.4 10^3/uL (0.8-4.8) 04/11/22 18:15 [place] # (Auto) 0.7 10^3/uL (0.2-0.9) 04/11/22 18:15 Eos # (Auto) 0.1 10^3/uL (0.0-0.8) 04/11/22 18:15 Baso # (Auto) 0.1 10^3/uL (0.0-0.1) 04/11/22 18:15 Nucleated RBC % (auto) 0 % 04/11/22 18:15 Nucleated RBCs # 0.0 /100WBC 04/11/22 18:15 Sodium 138 mmol/L (136-145) 04/11/22 18:15 Potassium 4.0 mmol/L (3.5-5.1) 04/11/22 18:15 Chloride 105 mmol/L (98-107) 04/11/22 18:15 Carbon Dioxide 21 mmol/L (22-29) L 04/11/22 18:15 Anion Gap 16.0 (5-19) 04/11/22 18:15 BUN 5 mg/dL (6-20) L 04/11/22 18:15 Creatinine 0.4 mg/dL (0.5-0.9) L 04/11/22 18:15 GFR Calculation 196.1 mL/min (90-130) H 04/11/22 18:15 Glucose 77 mg/dL (65-115) 04/11/22 18:15 Calculated Osmolality 282 mOsm/kg (285-295) L 04/11/22 18:15 Calcium 8.5 mg/dL (8.5-10.5) 04/11/22 18:15 Total Bilirubin 0.4 mg/dL (0.15-1.2) 04/11/22 18:15 AST 7 U/L (0-32) 04/11/22 18:15 ALT < 5 U/L (0-33) 04/11/22 18:15 Alkaline Phosphatase 112 U/L (35-105) H 04/11/22 18:15 C-Reactive Protein 103.5 mg/L (0.0-4.9) H 04/11/22 18:15 Total Protein 5.7 g/dL (6.6-8.7) L 04/11/22 18:15 Albumin 3.1 g/dL (3.5-5.2) L 04/11/22 18:15 Globulin 2.6 g/dL (1.3-4.6) 04/11/22 18:15 Influenza Type A Ag negative (Negative) 04/11/22 18:45 Influenza Type B Ag negative (Negative) 04/11/22 18:45 SARS-CoV-2 Ag (Rapid) negative (Negative) 04/11/22 18:45 Discharge Plan Discharge Patient Disposition: Home Clinical Impression: , Acute febrile illness, Nausea & vomiting, contractions Condition: Stable Prescriptions: No Action ondansetron HCl 4 mg tablet 4 mg PO Q6H Qty: 30 2RF promethazine 25 mg tablet 25 mg PO Q6H PRN (Reason: nausea and vomiting) Qty: 30 2RF albuterol sulfate 90 mcg/actuation HFA aerosol inhaler 2 inh inhalation Q6H PRN (Reason: shortness of breath or wheezing) Qty: 8.5 0RF lamotrigine [Lamictal] 100 mg tablet 100 mg PO BID Qty: 60 2RF Valtoco 10 mg/spray (0.1 mL) spray,non-aerosol See Rx Instructions .ROUTE .COMPLEX PRN (Reason: Seizures) Rx Instructions: 10 mg intranasally every 10 mins PRN seizures cephalexin 500 mg Tablet 500 mg PO BID Referrals: Zhang Snell MD [Primary Care Provider] - Patient Instructions: Opioid Safety, Pain Management Coding Level of Care Code ED Potato Inspector for Naomi Munoz
--- NOTE | 2022-04-11 19:03 | ECG_ITS ---
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 Measurements Intervals [place] Rate: 80 P: 12 [place]: 194 QRS: 69 QRSD: 93 T: 11 QT: 356 QTc: 411 Interpretive Statements SINUS RHYTHM MODERATE T-WAVE ABNORMALITY, CONSIDER ANTERIOR ISCHEMIA [-0.1+ mV T-WAVE IN V3/V4] No previous ECG available for comparison Electronically Signed On 04-12-2022 8:52:44 INDUSTRIAL HYGENIST by Jeremiah Bearden M.D. [id number]
[2022-04-11 19:08] LABS: Influenza A by IFA negative (Negative); Influenza B by IFA negative (Negative); SARS Covid-2 Antigen negative (Negative)
== END 2022-04-11 19:55 | disposition home or self-care (01) ==
PROVIDERS: Emergency Provider Student in an Organized Health Care Education/Training Program; PCP Family Medicine
DX: O26.892 Other specified pregnancy related conditions, second trimester (principal); O47.02 False labor before 37 completed weeks of gestation, second trimester; Z3A.24 24 weeks gestation of pregnancy; R50.9 Fever, unspecified; R11.2 Nausea with vomiting, unspecified; Z20.822 Contact with and (suspected) exposure to COVID-19; O99.332 Smoking (tobacco) complicating pregnancy, second trimester; F17.210 Nicotine dependence, cigarettes, uncomplicated
CPT/HCPCS: 12345; 71045; 80053; 85025; 86140; 87426; 87804; 93005; 96361; 96374; 99285; J2405; J7030

== ENCOUNTER 2022-04-11 19:59 | Outpatient (CLI) | payer MEDICAID, SELFPAY ==
[2022-04-11] VITALS (23 sets, daily range): BP systolic 111–127; BP diastolic 53–71; PULSE 78–107; RESP 16–18; TEMP 36.6–37.1; O2SAT 94–97
[2022-04-11] MEDS: terbutaline 1 mg/mL INJ 0.25 MG SUBCUT (20:24)
[2022-04-11] MEDS: lactated ringers 1,000 ML 150 ML IV (20:52)
[2022-04-11] MEDS: Fleet Enema 133 mL Enema PR (20:56)
--- NOTE | 2022-04-11 21:49 | PM.OBTRLD ---
OB L&D Triage Visit Information: Date of evaluation: 04/11/22 Reason for evaluation: other (Contractions with severe constipation) Comments/Additional reason(s) for visit: 26-year-old female G3, P1 at 24 point 6/7 weeks gestation with NADEGE 07/26/2022 seen after emergency room visit with complaints of contractions and severe constipation. Patient complains of contractions all day, denies leakage of fluid or vaginal bleeding. Patient gives history of constipation for 2 to 3 weeks, has been taking stool softeners and MiraLAX without resolution. Patient's last visit was in December, states she has been sick and been told not to attend each visit. I advised patient to call tomorrow 04/12/2022 in hopes of being scheduled for a return visit. After IV hydration and terbutaline 0.25 mg subcu contractions have ceased. Also after fleets enema patient has had a stool and feels much relieved and much better. I encourage patient to continue with stool softeners in hopes of avoiding constipation in the future. Evaluation: Baseline heart rate: 140 Cervical dilation (cm): 0 Vital signs: Vital Signs - 24 hr 04/11/22 20:12 04/11/22 20:13 04/11/22 20:17 Temperature 98.8 F Pulse Rate 80 78 80 Blood Pressure 115/54 Pulse Oximetry 96 96 04/11/22 20:22 04/11/22 20:27 04/11/22 20:32 Temperature Pulse Rate 81 83 92 Blood Pressure Pulse Oximetry 97 96 97 04/11/22 20:36 04/11/22 20:37 04/11/22 20:42 Temperature Pulse Rate 99 100 95 Blood Pressure 122/64 Pulse Oximetry 96 97 04/11/22 20:47 04/11/22 20:52 04/11/22 20:56 Temperature Pulse Rate 106 H 107 H 99 Blood Pressure 111/53 Pulse Oximetry 96 95 04/11/22 20:57 04/11/22 21:24 04/11/22 21:26 Temperature Pulse Rate 105 H 100 97 Blood Pressure 120/71 Pulse Oximetry 97 94 04/11/22 21:26 04/11/22 21:26 04/11/22 21:31 Temperature Pulse Rate 97 95 Blood Pressure Pulse Oximetry 95 95 04/11/22 21:36 04/11/22 21:41 04/11/22 21:45 Temperature Pulse Rate 86 85 98 Blood Pressure 114/57 Pulse Oximetry 96 96 94 04/11/22 21:46 Temperature Pulse Rate 87 Blood Pressure Pulse Oximetry 96 Care NADEGE Calculator Estimated Delivery Date Method Current WG Current Estimate 07/26/22 Ultrasound #1 24w 6d Other Estimates 07/17/22 LMP (Certain) 26w 1d Final Diagnosis Final Diagnosis (1) Supervision of other high risk , antepartum: Status: Acute Code(s): O09.899 - Supervision of other high risk pregnancies, unspecified trimester (2) Seizure disorder: Status: Acute Code(s): G40.909 - Epilepsy, unspecified, not intractable, without status epilepticus (3) contractions: Plan: 1. IV hydration 2. Terbutaline 0.25 mg subcu Status: Acute Code(s): O47.00 - False labor before 37 completed weeks of gestation, unspecified trimester Coding Level of Care Code Acute Code for Chg Fwd Diagnoses Supervision of other high risk , antepartum O09.899 Seizure disorder G40.909 contractions O47.00
--- NOTE | 2022-04-11 22:00 | PC.NURSE ---
Patient to follow up in the office with Dr Rivera tomorrow, 04/12/[address] Hodge.
== END 2022-04-11 22:12 | disposition home or self-care (01) ==
LOC: OPOB 19:59 → OBGYN 20:01
PROVIDERS: PCP Family Medicine; Visit Provider Obstetrics & Gynecology
DX: O47.9 False labor, unspecified (principal); Z3A.00 Weeks of gestation of pregnancy not specified
CPT/HCPCS: 12345; 96372; 99211; J3105; J7120

== ENCOUNTER → 2022-05-03 12:03 | Outpatient (BNVA) | payer MEDICAID, SELFPAY | PROVIDERS: PCP Family Medicine; Visit Provider Obstetrics & Gynecology | DX: O09.899 Supervision of other high risk pregnancies, unspecified trimester (principal); Z3A.00 Weeks of gestation of pregnancy not specified | CPT/HCPCS: 80307; 82950; 84315; 85025; 86592 ==

== ENCOUNTER → 2022-05-31 11:20 | Outpatient (BNVA) | payer MEDICAID, SELFPAY | PROVIDERS: PCP Family Medicine; Visit Provider Obstetrics & Gynecology | DX: O09.899 Supervision of other high risk pregnancies, unspecified trimester (principal); R82.90 Unspecified abnormal findings in urine; Z3A.00 Weeks of gestation of pregnancy not specified | CPT/HCPCS: 81000; 87086 ==

== ENCOUNTER 2022-06-09 11:01 | Outpatient (CLI) | payer MEDICAID, SELFPAY ==
[2022-06-09 11:01] VITALS: BMI 26.4
[2022-06-09 11:22] VITALS: BP 109/57; PULSE 85; TEMP 36.4
[2022-06-09 11:49] VITALS: BP 107/59; PULSE 81
[2022-06-09 12:17] LABS: Nitrazine Paper, PH Negative
== END 2022-06-09 12:03 | disposition home or self-care (01) ==
LOC: OPOB 11:08 → OBGYN 11:09
PROVIDERS: PCP Family Medicine; Visit Provider Obstetrics & Gynecology
DX: O26.899 Other specified pregnancy related conditions, unspecified trimester (principal); N89.8 Other specified noninflammatory disorders of vagina; Z3A.00 Weeks of gestation of pregnancy not specified
CPT/HCPCS: 59025; 83986; 99211

== ENCOUNTER → 2022-06-14 11:13 | Outpatient (BNVA) | payer MEDICAID, SELFPAY | PROVIDERS: PCP Family Medicine; Visit Provider Nurse Practitioner Women's Health | DX: O09.899 Supervision of other high risk pregnancies, unspecified trimester (principal) | CPT/HCPCS: 85025 ==

== ENCOUNTER 2022-06-24 23:19 | Outpatient (CLI) | payer MEDICAID, SELFPAY ==
[2022-06-24 23:23] VITALS: BMI 28.5
[2022-06-24 23:24] VITALS: RESP 17
[2022-06-24 23:25] VITALS: BP 113/58; PULSE 71
[2022-06-24 23:27] VITALS: TEMP 36
[2022-06-24 23:56] VITALS: BP 94/50; PULSE 69
[2022-06-25] VITALS (16 sets, daily range): BP systolic 92–111; BP diastolic 51–59; PULSE 71–86; O2SAT 94–98
[2022-06-25] MEDS: NIFEdipine 10 mg Capsule PO (00:10)
[2022-06-25] MEDS: acetaminophen 500 mg Tablet 1000 MG PO (00:11)
[2022-06-25] MEDS: lactated ringers 1,000 ML 999 ML IV (00:13)
[2022-06-25] MEDS: metoclopramide 5 mg/mL SDV 2 mL 10 MG IVP (00:45)
== END 2022-06-25 01:39 | disposition home or self-care (01) ==
LOC: OPOB 23:20 → OBGYN 23:21
PROVIDERS: PCP Family Medicine; Visit Provider Obstetrics & Gynecology
DX: O47.9 False labor, unspecified (principal); Z3A.00 Weeks of gestation of pregnancy not specified
CPT/HCPCS: 36415; 59025; 96374; 99211; J2765; J7120

== ENCOUNTER → 2022-06-28 08:31 | Outpatient (BNVA) | payer MEDICAID, SELFPAY | PROVIDERS: PCP Family Medicine; Visit Provider Obstetrics & Gynecology | DX: O09.899 Supervision of other high risk pregnancies, unspecified trimester (principal); Z3A.00 Weeks of gestation of pregnancy not specified | CPT/HCPCS: 81000; 87081 ==

== ENCOUNTER 2022-07-19 06:43 | Inpatient (IN) | payer MEDICAID, SELFPAY ==
[2022-07-19] VITALS (44 sets, daily range): BP systolic 83–139; BP diastolic 46–90; PULSE 40–73; RESP 16; TEMP 36.4–36.6; O2SAT 93–98; BMI 30.4
[2022-07-19] MEDS: lactated ringers 1,000 ML 999 ML IV (06:56)
--- NOTE | 2022-07-19 07:00 | PM.OPHPUD ---
Labor & Delivery H&P Update Date of Procedure: July 19, 2022 Date H&P Performed: 07/16/22 H&P update information: I have reviewed H&P completed within last 30 days, I have examined patient prior to procedure and Changes to prior documentation as noted here Changes to previous documentation: The patient presents in active labor. Cervix /-1, contractions every 3 minutes. Admission Diagnosis: Related Problem List Diagnoses (1) Functional neurological symptom disorder with attacks or seizures: (2) Supervision of other high risk , antepartum: (3) Chronic post-traumatic stress disorder: (4) Schizoaffective disorder, depressive type:
[2022-07-19 07:02] LABS: Basophils # 0.1 10^3/uL (0.0-0.1); Basophils % 0.3 %; Eosinophils # 0.2 10^3/uL (0.0-0.8); Eosinophils % 1.2 %; Hematocrit 35.3 % (37.0-47.0); Hemoglobin 11.1 g/dL (11.5-15.3); Lymphocytes % 15.8 %; Mean Corpuscular HGB Conc 31.4 g/dL (30.0-36.0); Mean Corpuscular Hemoglobin 28.5 pg (28.0-34.0); Mean Corpuscular Volume 90.5 fl (81-99); Monocytes % 5.4 %; Neutrophils # 14.28 10^3/uL (1.8-7.7); Neutrophils % 76.1 %; Nucleated Red Blood Cells % 0.1 %; Platelet Count 245 10^3/cmm (130-400); Red Cell Distribution Width 16.5 % (12.1-15.1); White Blood Count 18.8 10^3/uL (4.0-10.0)
[2022-07-19 07:22] LABS: Actim Prom Positive
[2022-07-19 07:34] LABS: Amphetamines Screen Urine Negative (Negative); Barbiturates Screen Urine Negative (Negative); Benzodiazepines Screen Urine Negative (Negative); Cocaine Screen Urine Negative (Negative); Opiate Screen Urine Negative (Negative); PCP Screen Urine Negative (Negative); THC Screen Urine Positive (Negative)
[2022-07-19 07:48] LABS: Slide Review Slide Review Perform
[2022-07-19] MEDS: dextrose 5%-lactated ringers 1,000 ML 125 ML IV (08:07)
[2022-07-19] MEDS: ondansetron 2 mg/ML SDV 2 mL 4 MG IVP (09:11)
--- NOTE | 2022-07-19 09:20 | P.ANESASSM_ITS ---
Pre-Anesthetic Assessment Height/Weight: Height 1.63 m Weight 80.286 kg Pulse BP Pulse Ox O2 Del Method 55 L 96/53 93 Room Air 07/19/22 09:14 07/19/22 09:14 07/19/22 08:18 07/19/22 07:13 Familial anesthetic complications: none Was Beta Daniela taken within 24 hours: N/A Was Clonidine taken within 24 hours: N/A Social No alcohol and No tobacco Exam alert, oriented x 3, clear to auscultation bilaterally and regular rate & rhythm Airway Submandibular: within normal limits Cervical ROM: within normal limits Mallampati: Class II Dentition: chipped Neuropsych Schizoaffective Anesthetic Plan ASA status: 2 Anesthesia: Regional (specify below) (Labor epidural) Medications/Allergies Home Medications Medication Instructions Recorded Confirmed Last Taken Type ferrous sulfate 27 mg iron tablet 27 mg PO DAILY 06/24/22 07/19/22 Unknown History no.58-iron bisglycinate 1 cap PO DAILY 06/24/22 07/19/22 Unknown History 10 mg iron-folic acid 400 mcg capsule Allergies Allergy/AdvReac Type Severity Reaction Status Date / Time bee venom protein (honey bee) Allergy Severe ALGY-Anaphy Verified 07/19/22 07:27 laxis epinephrine Allergy Severe ALGY-Difficulty Verified 07/19/22 07:27 [From Epi E-Z Pen] Breathing ibuprofen Allergy Unknown Verified 07/19/22 07:27 Penicillins Allergy Unknown Verified 07/19/22 07:27 Current Medications Generic Name Dose Route Start Last Admin Trade Name Freq PRN Reason Stop Dose Admin Dextrose/Lactated Ringer's 1,000 mls @ 125 mls/hr 07/19/22 06:45 07/19/22 08:07 Dextrose 5%-Lactated Ringers IV 125 mls/hr .Q8H PAYTON Administration Lactated Ringer's 1,000 mls @ 999 mls/hr 07/19/22 06:43 07/19/22 08:07 Lactated Ringers IV Infused .Q1H1M PRN Infusion Per L&D Rescitation Protocol Ondansetron HCl 4 mg 07/19/22 06:43 07/19/22 09:11 Ondansetron 2 Mg/Ml Sdv 2 Ml IVP 4 mg Q4H PRN Administration NAUSEA AND VOMITING PFSH Anesthesia Medical History Asthma Chronic post-traumatic stress disorder Psychiatric care Schizoaffective disorder, depressive type Seizures Family History Grandmother Hypertension Other Diabetes Denies family history of Colon cancer Ovarian cancer Heart disease Hypercholesteremia Breast cancer Uterine cancer Thyroid disease Stroke Social History Smoking and tobacco status: current some day smoker Female Reproductive History : 3 Data Anesthesia 07/19/22 06:41 Short CBC 07/19/22 Range/Units 06:41 WBC 18.8 H (4.0-10.0) 10^3/uL Hgb 11.1 L (11.5-15.3) g/dL Hct 35.3 L (37.0-47.0) % MCV 90.5 (81-99) fl Plt Count 245 (130-400) 10^3/cmm Neut % (Auto) 76.1 % Neut # (Auto) 14.28 H (1.8-7.7) 10^3/uL Cardiac Studies: No Data to Display Anesthesia Procedures Epidural Time Out Performed: Yes Consents Signed: Procedure Consent Consent: requested by attending/covering physician, from patient, risks and be nefits reviewed and patient agrees to proceed Lumbar Level: L3-L4 Epidural position: sitting Epidural procedure: sterile prep of area, 1% lidocaine to numb the area, 18 g needle, neg for paresthesia, test dose given, 1.5% xylocaine 1:200k epi, 0.2% Ropivacaine bolus ml (5), placed PCEA, no systemic response, sterile dressing a pplied and 0.2% Ropiavacaine @ mls/hr (13) Additional Comments: ALVERTO at 4cm, cath at 10cm, bolused 2mls of Fentanyl
--- NOTE | 2022-07-19 11:52 | PM.DELIVERY ---
Delivery Note: Date of delivery: July 19, 2022 Pre-delivery diagnoses: iup@39 weeks, multiple psychiatric diagnoses without treatment. Post-delivery diagnoses: same-delivered Procedure: Delivering Physician: ryan Estimated blood loss (mL): 30 Findings: term female in the cephalic presentation Pre-Delivery Course: The patient was admitted for active labor. Her cervix was 7/90/-2 on admission. She received an epidural for pain management. AROM was performed with clear fluid. She had complete cervical dilation and was allowed to labor down. She began to push. Delivery: The patient had complete cervical dilation and began to push. The head delivered in the DHIRAJ position over an intact perineum under epidural anesthesia. The nose and mouth were bulb suctioned. The shoulders and body delivered atraumatically. The baby was placed onto the mother's abdomen. The cord was clamped and cut. Cord blood was obtained. The placenta delivered spontaneously. It was inspected and found to be intact. Inspection of the perineum revealed a small second-degree laceration which was repaired in the usual fashion. Estimated blood loss 30 mL. Apgars on baby were 8 at 1 minute and 9 at 5 minutes. Weight of baby is 8 pounds 12 ounces. Mother and baby were stable post delivery. History History History 3 Term 1 0 Miscarriages/Ectopic 1 Living Children 1 Coding Level of Care Code Acute Code for Chg Fwd Diagnoses
[2022-07-19] MEDS: ibuprofen 800 mg tablet PO (15:26)
--- NOTE | 2022-07-19 18:40 | ANE.PACU2 ---
Inpatient post-anesthesia follow up: Airway intact: Yes Vital signs: Temperature 97.8 F Pulse Rate 66 Respiratory Rate 16 Blood Pressure 111/72 Pulse Oximetry 93 Oxygen Delivery Me thod Room Air Oxygen Flow Rate Fraction of Inspir ed Oxygen Hydration adequate: Yes Nausea and vomiting: No Pain level: 2 Mental status: Baseline
[2022-07-19] MEDS: docusate sodium 100 mg Capsule PO (20:33)
[2022-07-19 23:58] LABS: Hematocrit 33.1 % (37.0-47.0); Hemoglobin 10.2 g/dL (11.5-15.3); Mean Corpuscular HGB Conc 30.8 g/dL (30.0-36.0); Mean Corpuscular Hemoglobin 28.4 pg (28.0-34.0); Mean Corpuscular Volume 92.2 fl (81-99); Mean Platelet Volume 10.4 fL (7.4-10.4); Platelet Count 271 10^3/cmm (130-400); Red Blood Count 3.59 10^6/uL (4.1-5.3); Red Cell Distribution Width 16.5 % (12.1-15.1); White Blood Count 18.9 10^3/uL (4.0-10.0)
[2022-07-20] MEDS: HYDROcodone-acetaminophen 5-325 mg Tablet PO (01:44)
[2022-07-20 05:01] VITALS: BP 109/54; PULSE 63; RESP 18; TEMP 36.3
--- NOTE | 2022-07-20 07:19 | P.DS_ITS ---
Discharge Providers Date of Admission: 07/19/22 11:34 Date of Discharge: July 20, 2022 Attending Provider at Admission: Claudette Rivera MD Attending Provider at Discharge: Claudette Rivera MD Primary Care Provider: Zhang Snell MD Diagnoses at Discharge Discharge Diagnosis (1) Functional neurological symptom disorder with attacks or seizures: Status: Acute (2) Supervision of other high risk , antepartum: Status: Acute (3) Chronic post-traumatic stress disorder: Status: Acute (4) Schizoaffective disorder, depressive type: Status: Acute Reason for Visit Reason for Visit: Contractions, possible ROM Hospital Course Hospital Course The patient was admitted in active labor. she had spontaneous delivery of a term female . she did well and requested discharge on day #1 Physical Exam Narrative: The patient is doing well this morning. she is ambulating, tolerating a regular diet and pain is well controlled. Const: COMMON NORMALS: no acute distress, average body habitus, patient oriented x3, no limitations, healthy appearing, alert and well nourished GENERAL APPEARANCE: cooperative, comfortable, well kempt and well developed ORIENTATION/CONSCIOUSNESS: Yes awake, Yes oriented to person, Yes oriented to place and Yes oriented to time Resp: COMMON NORMALS: normal respiratory effort EFFORT & INSPECTION: Yes able to speak in complete sentences GI: COMMON NORMALS: Soft to palpation and non-tender PALPATION: Yes Soft to palpation Extremity: COMMON NORMALS: no calf tenderness Neuro: COMMON NORMALS: patient oriented x3 SENSORIUM/ORIENTATION: Yes alert, Yes oriented to person, Yes oriented to place and Yes oriented to time Psych: APPEARANCE: Yes well kempt Urinary Catheter Management: Vance Latex: Cath Placed During This Visit: yes, but has since been removed by the nurse Reason for Continuing Indwelling Catheter: Decision to DC Catheter Urinary Catheter Date of Insertion: 07/19/22 Urinary Catheter Time of Insertion: 10:30 Date Urinary Catheter Removed: 07/19/22 Time Urinary Catheter Discontinued: 11:19 Discharge Data Studies Completed and Pending Laboratory Results WBC 18.9 10^3/uL (4.0-10.0) H 07/19/22 23:51 RBC 3.59 10^6/uL (4.1-5.3) L 07/19/22 23:51 Hgb 10.2 g/dL (11.5-15.3) L 07/19/22 23:51 Hct 33.1 % (37.0-47.0) L 07/19/22 23:51 MCV 92.2 fl (81-99) 07/19/22 23:51 MCH 28.4 pg (28.0-34.0) 07/19/22 23:51 MCHC 30.8 g/dL (30.0-36.0) 07/19/22 23:51 RDW 16.5 % (12.1-15.1) H 07/19/22 23:51 Plt Count 271 10^3/cmm (130-400) 07/19/22 23:51 MPV 10.4 fL (7.4-10.4) 07/19/22 23:51 Neut % (Auto) 76.1 % 07/19/22 06:41 Lymph % (Auto) 15.8 % 07/19/22 06:41 [place] % (Auto) 5.4 % 07/19/22 06:41 Eos % (Auto) 1.2 % 07/19/22 06:41 Baso % (Auto) 0.3 % 07/19/22 06:41 Neut # (Auto) 14.28 10^3/uL (1.8-7.7) H 07/19/22 06:41 Lymph # (Auto) 3.0 10^3/uL (0.8-4.8) 07/19/22 06:41 [place] # (Auto) 1.0 10^3/uL (0.2-0.9) H 07/19/22 06:41 Eos # (Auto) 0.2 10^3/uL (0.0-0.8) 07/19/22 06:41 Baso # (Auto) 0.1 10^3/uL (0.0-0.1) 07/19/22 06:41 Nucleated RBC % (auto) 0.1 % 07/19/22 06:41 Nucleated RBCs # 0.0 /100WBC 07/19/22 06:41 Insulin-like GF I Positive 07/19/22 06:32 Urine Opiates Screen Negative ng/mL (Negative) 07/19/22 06:32 Ur Barbiturates Screen Negative ng/mL (Negative) 07/19/22 06:32 Ur Phencyclidine Scrn Negative ng/mL (Negative) 07/19/22 06:32 Ur Amphetamines Screen Negative ng/mL (Negative) 07/19/22 06:32 U Benzodiazepines Scrn Negative ng/mL (Negative) 07/19/22 06:32 Urine Cocaine Screen Negative ng/mL (Negative) 07/19/22 06:32 U Marijuana (THC) Screen Positive ng/mL (Negative) H 07/19/22 06:32 Vitals Last Vital Signs Temp 97.3 F L 07/20/22 05:01 Pulse 63 07/20/22 05:01 Resp 18 07/20/22 05:01 BP 109/54 07/20/22 05:01 Pulse Ox 93 07/19/22 08:18 O2 Del Method Room Air 07/20/22 05:01 Discharge Plan Discharge Patient Disposition: Home Condition: Stable Prescriptions: Continued PNV comb no.58-iron bisgly-FA 10-400 mg-mcg Capsule 1 cap PO DAILY ferrous sulfate 27 mg iron Tablet 27 mg PO DAILY Discharge Orders: Discharge Order (Routine); Ordered 07/20/22 Ordered By: Claudette Rivera Patient Instructions: Opioid Safety Discharge Attestations Time Spent in Discharge Care*: less than 30 min Quality Metrics Clinical Quality Measures [ No reported AMI, CVA or VTE this stay] Coding Level of Care Code Acute Code for Chg Fwd Diagnoses Functional neurological symptom disorder with attacks or seizures F44.5 Supervision of other high risk , antepartum O09.899 Chronic post-traumatic stress disorder F43.12 Schizoaffective disorder, depressive type F25.1
[2022-07-20] MEDS: prenatal vitamin Capsule 1 CAP PO (09:51)
[2022-07-20] MEDS: docusate sodium 100 mg Capsule PO ×2 (09:51→16:57)
[2022-07-20] MEDS: acetaminophen 325 mg Tablet 650 MG PO ×2 (09:51→16:57)
[2022-07-20 09:53] VITALS: BP 120/64; PULSE 71; TEMP 36.7
[2022-07-20 17:00] VITALS: BP 107/56; PULSE 77; TEMP 37
[2022-07-20 18:00] VITALS: BP 107/56; PULSE 77; RESP 16; TEMP 37
== END 2022-07-20 18:10 | disposition home or self-care (01) | DRG 807 ==
LOC: OPOB 07-20 11:18 → OBGYN 07-20 11:18
PROVIDERS: Admitting Provider Obstetrics & Gynecology; PCP Family Medicine; Visit Provider Obstetrics & Gynecology
DX: O99.344 Other mental disorders complicating childbirth (principal); Z37.0 Single live birth; Z3A.39 39 weeks gestation of pregnancy; F43.12 Post-traumatic stress disorder, chronic; F25.1 Schizoaffective disorder, depressive type; O70.1 Second degree perineal laceration during delivery
CPT/HCPCS: 36415; 51702; 59025; 59409; 80306; 84112; 85025; 85027; 96374; 99211; J2405; J2795; J3010; J7040; J7120; J7121

== ENCOUNTER → 2023-06-02 09:30 | Outpatient (BNVA) | payer MEDICAID, SELFPAY | PROVIDERS: PCP Family Medicine; Referring Provider Nurse Practitioner Psychiatric/Mental Health; Visit Provider Psychiatry & Neurology Neurology | DX: E55.9 Vitamin D deficiency, unspecified (principal); F41.1 Generalized anxiety disorder; F41.0 Panic disorder [episodic paroxysmal anxiety]; R56.9 Unspecified convulsions; F43.12 Post-traumatic stress disorder, chronic; R53.83 Other fatigue; F17.290 Nicotine dependence, other tobacco product, uncomplicated; F25.1 Schizoaffective disorder, depressive type; R79.0 Abnormal level of blood mineral; Z34.90 Encounter for supervision of normal pregnancy, unspecified, unspecified trimester; G40.909 Epilepsy, unspecified, not intractable, without status epilepticus | CPT/HCPCS: 36415; 80053; 82652; 82746; 83735; 83921; 84439; 84443; 84481; 84702; 85025 ==

== ENCOUNTER → 2023-09-08 14:12 | Outpatient (BNVA) | payer OTHER, SELFPAY | PROVIDERS: PCP Family Medicine; Visit Provider Nurse Practitioner Psychiatric/Mental Health | DX: Z79.899 Other long term (current) drug therapy (principal) | CPT/HCPCS: 80053; 80061; 83036; 85025 ==

== ENCOUNTER → 2023-11-12 12:16 | Outpatient (BNVA) | payer MEDICAID, SELFPAY | PROVIDERS: PCP Family Medicine | DX: S40.011A Contusion of right shoulder, initial encounter (principal); X58.XXXA Exposure to other specified factors, initial encounter | CPT/HCPCS: 73030 ==

== ENCOUNTER 2024-02-03 12:29 | Emergency (ER) | payer MEDICAID, SELFPAY ==
[2024-02-03 12:51] VITALS: BP 121/82; PULSE 86; RESP 17; TEMP 36.7; O2SAT 98; BMI 22.4
[2024-02-03 14:09] LABS: Covid PCR NEGATIVE (Negative); Influenza A NEGATIVE (Negative); Influenza B NEGATIVE (Negative); Respiratory Syncytial Virus Ce NEGATIVE (Negative)
== END 2024-02-03 13:13 | disposition left against medical advice (07) ==
LOC: ER 12:33
PROVIDERS: Emergency Medicine; Emergency Provider Family Medicine; PCP Family Medicine
DX: Z53.21 Procedure and treatment not carried out due to patient leaving prior to being seen by health care provider (principal)
CPT/HCPCS: 0241U

== ENCOUNTER → 2024-05-22 12:43 | Outpatient (BNVA) | payer MEDICAID, SELFPAY | PROVIDERS: PCP Family Medicine; Visit Provider Emergency Medicine | DX: B34.9 Viral infection, unspecified (principal) | CPT/HCPCS: 87400; 87426 ==

== ENCOUNTER → 2024-08-31 11:21 | Outpatient (BNVA) | payer SELFPAY | PROVIDERS: PCP Family Medicine; Visit Provider Emergency Medicine | DX: T14.8XXA Other injury of unspecified body region, initial encounter (principal); X58.XXXA Exposure to other specified factors, initial encounter | CPT/HCPCS: 80053; 85025; 85610; 85730 ==

== ENCOUNTER 2024-09-03 17:05 | Emergency (ER) | payer SELFPAY ==
--- OUTSIDE RECORDS SUMMARY | 2024-09-03 17:08 | XMS_ITS | Clinical Summary ---
Author Organization [facility] Address [address] Attn: Epic Prelude ADT MARIELLE MYERS [id number] Care Team Providers Care Barnworker Groom Name Role Phone Zhang Snell MD Primary Care Provider [phone] Allergies No known active allergies Medications lamoTRIgine (LaMICtal) 100 mg tablet Take 100 mg by mouth 2 times daily. Active ibuprofen (MOTRIN) 200 mg tablet Take 400 mg by mouth every 6 hours as needed for Pain, Mild. 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 Gender Identity Not on file Sexual Orientation Not on file Last Filed Vital Signs Vital Sign Reading Time Taken Comments Blood Pressure 99/67 01/19/2022 2:19 PM [employer] MARKUP CLERK Pulse 92 01/19/2022 2:19 PM [employer] MARKUP CLERK Temperature 38.3 C (100.9 F) 01/19/2022 1:16 PM [employer]ING [employer] MARKUP CLERK Respiratory Rate 18 01/19/2022 2:19 PM [employer]ING [employer] MARKUP CLERK Oxygen Saturation 100% 01/19/2022 2:19 PM [employer] MARKUP CLERK Inhaled Oxygen Concentration - - Weight 63.9 kg (140 lb 14.4 oz) 01/19/2022 1:16 PM [employer] MARKUP CLERK Height 162.6 cm (5' 4 ) 01/19/2022 1:16 PM [employer]UP CLERK Body Mass Index 24.19 01/19/2022 1:16 PM [employer]UP CLERK Plan of Treatment Health Maintenance Due Date Last Done Comments HPV VACCINES (1 - 3-dose series) 2012 DTAP/TDAP/TD VACCINES (1 - Tdap) 2016 HEPATITIS B VACCINES (1 of 3 - 19+ 3-dose series) 08/28 CERVICAL CANCER SCREENING 2018 HPV/Cotest (21-29) 2018 PAP SMEAR 2018 INFLUENZA VACCINE (#1) 2024 RSV VACCINE (60+ or ) (1 - 1-dose 75+ series) [address] [place] [address] HEALTH PLAN MEDICAID Care Teams Barnworker Groom Relationship Specialty Start Date End Date Zhang Snell MD [address] [place] [id number] PCP - General Family Practice 01/19/22
[2024-09-03 17:23] VITALS: BP 95/62; PULSE 64; TEMP 36.7; O2SAT 100
== END 2024-09-03 18:26 | disposition left against medical advice (07) ==
PROVIDERS: Emergency Provider Family Medicine
DX: Z01.89 Encounter for other specified special examinations (principal); Z53.21 Procedure and treatment not carried out due to patient leaving prior to being seen by health care provider
CPT/HCPCS: 81000; 81025

== ENCOUNTER → 2024-10-15 11:46 | Outpatient (BNVA) | payer SELFPAY | DX: F41.1 Generalized anxiety disorder (principal); F41.0 Panic disorder [episodic paroxysmal anxiety] | CPT/HCPCS: 80053; 84443 ==

== ENCOUNTER → 2024-11-12 11:47 | Outpatient (BNVA) | payer SELFPAY | PROVIDERS: Visit Provider Registered Nurse Neonatal Intensive Care | DX: R50.9 Fever, unspecified (principal) | CPT/HCPCS: 87400; 87426 ==